=== PATIENT | male | born 1965 | race Two or more races ===

== ENCOUNTER 2020-07-12 10:48 | Outpatient (REF) | payer OTHER, SELFPAY ==
[2020-07-12 12:08] LABS: Anion Gap 13 (12-20); Blood Urea Nitrogen 19 mg/dL (9-16); Carbon Dioxide 31 mmol/L (22-29); Chloride 102 mmol/L (96-108); Estimated Glomerular Filt Rate 44; Glucose Random 100 mg/dL (60-115); Potassium 4.6 mmol/L (3.3-5.1); Sodium 141 mmol/L (135-145)
[2020-07-12 12:18] LABS: Creatinine Urine 212.81 mg/dL; Microalbum/Creatinine Ratio Ur 11.7 ug/mg cr
== END 2020-07-12 10:49 | disposition home or self-care (01) ==
LOC: HO.LAB 10:48
PROVIDERS: PCP Family Medicine; Visit Provider Family Medicine
DX: Z00.00 Encounter for general adult medical examination without abnormal findings (principal); I12.9 Hypertensive chronic kidney disease with stage 1 through stage 4 chronic kidney disease, or unspecified chronic kidney disease; N18.9 Chronic kidney disease, unspecified
CPT/HCPCS: 36415; 80048; 82043

== ENCOUNTER 2020-10-10 09:35 | Outpatient (REF) | payer OTHER, SELFPAY ==
[2020-10-10 10:36] LABS: MANUAL DIFF FLAG NO
[2020-10-10 11:01] LABS: Basophils Absolute Auto 0.1 X10*3/uL (0.0-0.2); Eosinophils Absolute Auto 0.1 X10*3/uL (0.0-0.4); Eosinophils Percent Auto 2.2 % (0-4); Hematocrit 45.9 % (42-52); Imm Gran Abs Auto 0.02 X10*3/uL (0.00-0.03); Imm Gran Pct Auto 0.4 % (0.0-0.4); Lymphocytes Absolute Auto 1.8 X10*3/uL (1.2-4.9); Lymphocytes Percent Auto 35.6 % (20-40); Mean Corpuscular HGB Conc 32.7 g/dl (31.0-36.0); Mean Corpuscular Hemoglobin 28.2 pg (27.0-33.0); Mean Corpuscular Volume 86.3 fL (80-98); Mean Platelet Volume 11.1 fL (9.4-12.4); Monocytes Absolute Auto 0.4 X10*3/uL (0.1-1.2); Monocytes Percent Auto 7.1 % (2-11); Neutrophils Absolute Auto 2.7 X10*3/uL (2.0-8.3); Neutrophils Percent Auto 53.7 % (45-73); Platelet Count 252 X10*3/uL (160-400); Red Blood Count 5.32 X10*6/uL (4.60-5.80); Red Cell Distribution Width 13.7 % (11.0-16.0); White Blood Count 5.1 X10*3/uL (4.8-10.8)
[2020-10-10 11:12] LABS: Alanine Aminotransferase 26 U/L (0-40); Albumin Level 4.4 g/dL (3.5-5.0); Alkaline Phosphatase 87 U/L (39-117); Anion Gap 11 (12-20); Aspartate Amino Transferase 29 U/L (5-37); Bilirubin Total 0.5 mg/dL (0.0-1.0); Blood Urea Nitrogen 17 mg/dL (9-16); Calcium 9.7 mg/dL (8.4-10.2); Carbon Dioxide 27 mmol/L (22-29); Chloride 109 mmol/L (96-108); Cholesterol 211 mg/dL; Estimated Glomerular Filt Rate 35; Glucose Fasting 103 mg/dL (60-99); HDL Cholesterol 43 mg/dL; LDL Cholesterol Calculated 147 mg/dl; Potassium 4.7 mmol/L (3.3-5.1); Sodium 142 mmol/L (135-145); Total Protein 7.8 g/dL (6.5-8.0); Triglycerides 105 mg/dL
[2020-10-10 11:22] LABS: TSH reflex Free T4 1.49 uIU/mL (0.32-4.0)
== END 2020-10-10 09:36 | disposition home or self-care (01) ==
LOC: HO.WFDLDS 09:35
PROVIDERS: Visit Provider Family Medicine
DX: Z00.00 Encounter for general adult medical examination without abnormal findings (principal)
CPT/HCPCS: 36415; 80053; 80061; 84443; 85025

== ENCOUNTER 2020-12-18 08:52 | Outpatient (REF) | payer OTHER, SELFPAY ==
[2020-12-18 11:30] LABS: Appearance Urine CLEAR; Color Urine YELLOW; Glucose Urine UA NEG (NEG); Leukocyte Esterase Urine NEG (NEG); Nitrite Urine NEG (NEG); Urine Blood NEG (NEG); Urine Ketones NEG (NEG); Urine Protein NEG (NEG-TRACE)
[2020-12-18 11:40] LABS: Anion Gap 13 (12-20); Blood Urea Nitrogen 17 mg/dL (9-16); Calcium 10.1 mg/dL (8.4-10.2); Carbon Dioxide 27 mmol/L (22-29); Chloride 107 mmol/L (96-108); Cholesterol 125 mg/dL; Estimated Glomerular Filt Rate 39; Glucose Random 100 mg/dL (60-115); HDL Cholesterol 36 mg/dL; LDL Cholesterol Calculated 73 mg/dl; Potassium 4.5 mmol/L (3.3-5.1); Sodium 142 mmol/L (135-145); Triglycerides 84 mg/dL
[2020-12-18 11:50] LABS: Alanine Aminotransferase 25 U/L (0-40); Albumin Level 4.6 g/dL (3.5-5.0); Alkaline Phosphatase 104 U/L (39-117); Aspartate Amino Transferase 23 U/L (5-37); Bilirubin Direct 0.3 mg/dL (0.0-0.5); Total Protein 8.1 g/dL (6.5-8.0); Uric Acid 6.6 mg/dL (3.4-7.0)
[2020-12-18 12:05] LABS: Prostate Specific Antigen Scr 1.52 ng/mL (<0.05-4.0)
[2020-12-18 12:09] LABS: Creatinine Urine 312.78 mg/dL; Protein/Creatinine Ratio, Ur 0.04 (<0.2); Total Protein Urine Random 14 mg/dL (<12)
== END 2020-12-18 08:53 | disposition home or self-care (01) ==
LOC: HO.WFDLDS 08:52
PROVIDERS: Internal Medicine Nephrology; PCP Family Medicine; Visit Provider Family Medicine
DX: Z00.00 Encounter for general adult medical examination without abnormal findings (principal); I13.0 Hypertensive heart and chronic kidney disease with heart failure and stage 1 through stage 4 chronic kidney disease, or unspecified chronic kidney disease; N18.31 Chronic kidney disease, stage 3a; I50.9 Heart failure, unspecified; E78.5 Hyperlipidemia, unspecified; Z12.5 Encounter for screening for malignant neoplasm of prostate
CPT/HCPCS: 36415; 80048; 80061; 80076; 81003; 84153; 84156; 84550

== ENCOUNTER 2021-04-09 10:12 | Outpatient (REF) | payer OTHER, SELFPAY ==
[2021-04-09 10:55] LABS: MANUAL DIFF FLAG NO
[2021-04-09 10:57] LABS: Basophils Percent Auto 0.7 % (0-2); Eosinophils Absolute Auto 0.1 X10*3/uL (0.0-0.4); Eosinophils Percent Auto 1.7 % (0-4); Hematocrit 45.8 % (42.0-52.0); Hemoglobin 15.1 g/dl (14.0-18.0); Imm Gran Abs Auto 0.01 X10*3/uL (0.00-0.03); Imm Gran Pct Auto 0.2 % (0.0-0.4); Lymphocytes Absolute Auto 1.8 X10*3/uL (1.2-4.9); Lymphocytes Percent Auto 33.1 % (20-40); Mean Corpuscular Hemoglobin 28.5 pg (27.0-33.0); Mean Corpuscular Volume 86.6 fL (80.0-98.0); Mean Platelet Volume 11.1 fL (9.4-12.4); Monocytes Absolute Auto 0.3 X10*3/uL (0.1-1.2); Monocytes Percent Auto 5.9 % (2-11); Neutrophils Absolute Auto 3.1 x10*3/uL (2.0-8.3); Neutrophils Percent Auto 58.4 % (45-73); Platelet Count 237 X10*3/uL (160-400); Red Blood Count 5.29 X10*6/uL (4.60-5.80); Red Cell Distribution Width 13.9 % (11.0-16.0); White Blood Count 5.4 X10*3/uL (4.8-10.8)
[2021-04-09 11:25] LABS: Alanine Aminotransferase 29 U/L (0-40); Albumin Level 4.3 g/dL (3.5-5.0); Alkaline Phosphatase 89 U/L (39-117); Anion Gap 9 (12-20); Aspartate Amino Transferase 25 U/L (5-37); Bilirubin Total 0.7 mg/dL (0.0-1.0); Blood Urea Nitrogen 12 mg/dL (9-16); Calcium 9.9 mg/dL (8.4-10.2); Carbon Dioxide 30 mmol/L (22-29); Chloride 108 mmol/L (96-108); Cholesterol 144 mg/dL; Estimated Glomerular Filt Rate 39; Glucose Fasting 105 mg/dL (60-99); HDL Cholesterol 39 mg/dL; LDL Cholesterol Calculated 86 mg/dl; Sodium 142 mmol/L (135-145); Total Protein 7.8 g/dL (6.5-8.0); Triglycerides 97 mg/dL
[2021-04-09 11:45] LABS: TSH reflex Free T4 1.98 uIU/mL (0.32-4.0)
[2021-04-09 13:41] LABS: Appearance Urine CLEAR; Color Urine YELLOW; Glucose Urine UA NEG (NEG); Leukocyte Esterase Urine NEG (NEG); Nitrite Urine NEG (NEG); Specific Gravity - Urine 1.025 (1.005-1.025); Urine Blood NEG (NEG); Urine Ketones NEG (NEG); Urine Protein TRACE MG/DL (NEG-TRACE)
== END 2021-04-09 10:13 | disposition home or self-care (01) ==
LOC: HO.WFDLDS 10:12
PROVIDERS: Visit Provider Family Medicine
DX: Z00.00 Encounter for general adult medical examination without abnormal findings (principal)
CPT/HCPCS: 36415; 80053; 80061; 81003; 84443; 85025

== ENCOUNTER 2021-06-24 09:56 | Outpatient (REF) | payer OTHER, SELFPAY ==
[2021-06-24 11:08] LABS: MANUAL DIFF FLAG NO
[2021-06-24 11:38] LABS: Basophils Percent Auto 0.5 % (0-2); Eosinophils Absolute Auto 0.2 X10*3/uL (0.0-0.4); Eosinophils Percent Auto 2.9 % (0-4); Hematocrit 45.1 % (42.0-52.0); Hemoglobin 14.7 g/dl (14.0-18.0); Imm Gran Abs Auto 0.01 X10*3/uL (0.00-0.03); Imm Gran Pct Auto 0.2 % (0.0-0.4); Lymphocytes Absolute Auto 1.7 X10*3/uL (1.2-4.9); Lymphocytes Percent Auto 30.1 % (20-40); Mean Corpuscular HGB Conc 32.6 g/dl (31.0-36.0); Mean Corpuscular Hemoglobin 28.4 pg (27.0-33.0); Mean Corpuscular Volume 87.1 fL (80.0-98.0); Mean Platelet Volume 11.6 fL (9.4-12.4); Monocytes Absolute Auto 0.4 X10*3/uL (0.1-1.2); Monocytes Percent Auto 6.7 % (2-11); Neutrophils Absolute Auto 3.3 x10*3/uL (2.0-8.3); Neutrophils Percent Auto 59.6 % (45-73); Platelet Count 242 X10*3/uL (160-400); Red Blood Count 5.18 X10*6/uL (4.60-5.80); Red Cell Distribution Width 13.7 % (11.0-16.0); White Blood Count 5.5 X10*3/uL (4.8-10.8)
[2021-06-24 12:22] LABS: Anion Gap 14 (12-20); Blood Urea Nitrogen 16 mg/dL (9-16); Calcium 9.9 mg/dL (8.4-10.2); Carbon Dioxide 25 mmol/L (22-29); Chloride 106 mmol/L (96-108); Estimated Glomerular Filt Rate 34; Phosphorus 2.6 mg/dL (2.7-4.5); Potassium 4.6 mmol/L (3.3-5.1); Sodium 140 mmol/L (135-145)
[2021-06-24 12:31] LABS: Appearance Urine CLEAR; Color Urine YELLOW; Glucose Urine UA NEG (NEG); Leukocyte Esterase Urine NEG (NEG); Nitrite Urine NEG (NEG); Specific Gravity - Urine 1.025 (1.005-1.025); Urine Blood NEG (NEG); Urine Ketones NEG (NEG); Urine Protein NEG (NEG-TRACE)
[2021-06-24 12:35] LABS: Vitamin D 25-OH Total 58.6 ng/mL (>30)
[2021-06-24 12:55] LABS: Renal w Reflex Lab Use Only Order verified
[2021-06-24 13:46] LABS: Total Protein Urine Random 16 mg/dL (<12)
[2021-06-25 12:51] LABS: Calcium (PTHI) 9.8 mg/dL (8.6-10.3); PTHI 71 pg/mL (16-77)
== END 2021-06-24 09:57 | disposition home or self-care (01) ==
LOC: HO.WFDLDS 09:56
PROVIDERS: Visit Provider Internal Medicine Nephrology
DX: I12.9 Hypertensive chronic kidney disease with stage 1 through stage 4 chronic kidney disease, or unspecified chronic kidney disease (principal); N18.31 Chronic kidney disease, stage 3a
CPT/HCPCS: 36415; 80051; 81003; 82306; 82310; 82565; 83970; 84100; 84156; 84520; 85025

== ENCOUNTER 2021-10-02 09:07 | Outpatient (REF) | payer OTHER, SELFPAY ==
[2021-10-02 11:14] LABS: Anion Gap 11 (12-20); Blood Urea Nitrogen 16 mg/dL (9-16); Calcium 9.6 mg/dL (8.4-10.2); Carbon Dioxide 28 mmol/L (22-29); Chloride 106 mmol/L (96-108); Estimated Glomerular Filt Rate 45; Potassium 5.2 mmol/L (3.3-5.1); Sodium 140 mmol/L (135-145)
[2021-10-02 11:30] LABS: Appearance Urine CLEAR; Color Urine YELLOW; Glucose Urine UA NEG (NEG); Leukocyte Esterase Urine NEG (NEG); Nitrite Urine NEG (NEG); Urine Blood NEG (NEG); Urine Ketones NEG (NEG); Urine Protein NEG (NEG-TRACE)
[2021-10-02 11:54] LABS: Creatinine Urine 245.61 mg/dL; Protein/Creatinine Ratio, Ur 0.04 (<0.2); Total Protein Urine Random 11 mg/dL (<12)
[2021-10-02 12:19] LABS: RBC Urine 0 /HPF (0); WBC Urine 0-2 /HPF (0-4)
[2021-10-02 12:46] LABS: Renal w Reflex Lab Use Only Order verified
== END 2021-10-02 09:08 | disposition home or self-care (01) ==
LOC: HO.WFDLDS 09:07
PROVIDERS: Visit Provider Internal Medicine Nephrology
DX: I12.9 Hypertensive chronic kidney disease with stage 1 through stage 4 chronic kidney disease, or unspecified chronic kidney disease (principal); N18.31 Chronic kidney disease, stage 3a
CPT/HCPCS: 36415; 80051; 81001; 82310; 82565; 84156; 84520

== ENCOUNTER 2021-10-26 09:22 | Outpatient (REF) | payer OTHER, SELFPAY ==
[2021-10-26 11:50] LABS: Alanine Aminotransferase 19 U/L (0-40); Albumin Level 4.5 g/dL (3.5-5.0); Alkaline Phosphatase 97 U/L (39-117); Anion Gap 14 (12-20); Aspartate Amino Transferase 23 U/L (5-37); Bilirubin Total 0.7 mg/dL (0.0-1.0); Blood Urea Nitrogen 14 mg/dL (9-16); Calcium 9.6 mg/dL (8.4-10.2); Carbon Dioxide 26 mmol/L (22-29); Chloride 106 mmol/L (96-108); Estimated Glomerular Filt Rate 46; Glucose Random 103 mg/dL (60-115); Potassium 5.2 mmol/L (3.3-5.1); Sodium 141 mmol/L (135-145); Total Protein 7.8 g/dL (6.5-8.0)
== END 2021-10-26 09:23 | disposition home or self-care (01) ==
LOC: HO.WFDLDS 09:22
PROVIDERS: Visit Provider Family Medicine
DX: N18.9 Chronic kidney disease, unspecified (principal)
CPT/HCPCS: 36415; 80053

== ENCOUNTER 2022-01-21 09:36 | Outpatient (REF) | payer OTHER, SELFPAY ==
[2022-01-21 11:20] LABS: Potassium 4.1 mmol/L (3.3-5.1); Sodium 141 mmol/L (135-145)
[2022-01-21 11:21] LABS: Anion Gap 14 (12-20); Blood Urea Nitrogen 16 mg/dL (9-16); Calcium 9.7 mg/dL (8.4-10.2); Carbon Dioxide 26 mmol/L (22-29); Chloride 105 mmol/L (96-108); Estimated Glomerular Filt Rate 44; Glucose Random 106 mg/dL (60-115)
== END 2022-01-21 09:37 | disposition home or self-care (01) ==
LOC: HO.WFDLDS 09:36
PROVIDERS: Visit Provider Family Medicine
DX: Z00.00 Encounter for general adult medical examination without abnormal findings (principal); N18.9 Chronic kidney disease, unspecified
CPT/HCPCS: 36415; 80048

== ENCOUNTER 2022-05-13 10:04 | Outpatient (REF) | payer OTHER, SELFPAY ==
[2022-05-13 11:19] LABS: MANUAL DIFF FLAG NO
[2022-05-13 11:26] LABS: Appearance Urine Clear; Color Urine Dark Yellow; Glucose Urine UA Negative (Negative); Leukocyte Esterase Urine Trace (Negative); Nitrite Urine Negative (Negative); PH 5.5 (5.0-9.0); UMIC TRIGGER UA YES; Urine Blood Negative (Negative); Urine Ketones Trace mg/dL (Negative); Urine Protein Trace mg/dL (Neg-Trace)
[2022-05-13 11:40] LABS: Basophils Percent Auto 0.7 % (0-2); Eosinophils Absolute Auto 0.1 X10*3/uL (0.0-0.4); Eosinophils Percent Auto 1.4 % (0-4); Hematocrit 46.1 % (42.0-52.0); Hemoglobin 15.2 g/dl (14.0-18.0); Imm Gran Abs Auto 0.02 X10*3/uL (0.00-0.03); Imm Gran Pct Auto 0.3 % (0.0-0.4); Lymphocytes Absolute Auto 1.8 X10*3/uL (1.2-4.9); Lymphocytes Percent Auto 31.4 % (20-40); Mean Corpuscular Hemoglobin 28.6 pg (27.0-33.0); Mean Corpuscular Volume 86.8 fL (80.0-98.0); Mean Platelet Volume 11.5 fL (9.4-12.4); Monocytes Absolute Auto 0.4 X10*3/uL (0.1-1.2); Monocytes Percent Auto 7.1 % (2-11); Neutrophils Absolute Auto 3.4 x10*3/uL (2.0-8.3); Neutrophils Percent Auto 59.1 % (45-73); Platelet Count 234 X10*3/uL (160-400); Red Blood Count 5.31 X10*6/uL (4.60-5.80); Red Cell Distribution Width 13.5 % (11.0-16.0); White Blood Count 5.8 X10*3/uL (4.8-10.8)
[2022-05-13 11:42] LABS: Bacteria Urine None Seen (None Seen); Hyaline Casts Urine 0-2 /LPF (0-2); Squamous Epithelial Cell Urine 0-2 /HPF (0-2); WBC Urine 0-5 /HPF (0-5)
[2022-05-13 12:11] LABS: Estimated Average Glucose 114 mg/dL; Hemoglobin A1c % 5.6 %
[2022-05-13 12:25] LABS: Alanine Aminotransferase 24 U/L (0-40); Albumin Level 4.3 g/dL (3.5-5.0); Alkaline Phosphatase 94 U/L (39-117); Anion Gap 11 (12-20); Aspartate Amino Transferase 23 U/L (5-37); Bilirubin Total 0.9 mg/dL (0.0-1.0); Blood Urea Nitrogen 15 mg/dL (9-16); Calcium 9.6 mg/dL (8.4-10.2); Carbon Dioxide 29 mmol/L (22-29); Chloride 106 mmol/L (96-108); Cholesterol 139 mg/dL; Estimated Glomerular Filt Rate 39; Glucose Random 102 mg/dL (60-115); HDL Cholesterol 37 mg/dL; LDL Cholesterol Calculated 81 mg/dl; Potassium 4.3 mmol/L (3.3-5.1); Sodium 142 mmol/L (135-145); Total Protein 7.5 g/dL (6.5-8.0); Triglycerides 108 mg/dL
[2022-05-14 22:28] LABS: Prolactin 5.7 ng/mL (2.0-18.0)
== END 2022-05-13 10:05 | disposition home or self-care (01) ==
LOC: HO.WFDLDS 10:04
PROVIDERS: Visit Provider Counselor Mental Health
DX: F40.10 Social phobia, unspecified (principal)
CPT/HCPCS: 36415; 80053; 80061; 81001; 83036; 84146; 84443; 85025

== ENCOUNTER 2022-07-30 08:08 | Outpatient (REF) | payer OTHER, SELFPAY ==
[2022-07-30 12:13] LABS: Anion Gap 11 (12-20); Blood Urea Nitrogen 17 mg/dL (9-16); Calcium 9.3 mg/dL (8.4-10.2); Carbon Dioxide 26 mmol/L (22-29); Chloride 110 mmol/L (96-108); Estimated Glomerular Filt Rate 38; Glucose Random 105 mg/dL (60-115); Potassium 4.3 mmol/L (3.3-5.1); Sodium 143 mmol/L (135-145)
[2022-07-30 12:24] LABS: Anion Gap 11 (12-20); Blood Urea Nitrogen 16 mg/dL (9-16); Calcium 9.4 mg/dL (8.4-10.2); Carbon Dioxide 26 mmol/L (22-29); Chloride 111 mmol/L (96-108); Estimated Glomerular Filt Rate 39; Potassium 4.2 mmol/L (3.3-5.1); Sodium 144 mmol/L (135-145)
[2022-07-30 12:44] LABS: Creatinine Urine 267.51 mg/dL; Protein/Creatinine Ratio, Ur 0.06 (<0.2); Total Protein Urine Random 15 mg/dL (<12)
== END 2022-07-30 08:09 | disposition home or self-care (01) ==
LOC: HO.WFDLDS 08:08
PROVIDERS: Family Medicine; Visit Provider Internal Medicine Nephrology
DX: Z00.00 Encounter for general adult medical examination without abnormal findings (principal); I12.9 Hypertensive chronic kidney disease with stage 1 through stage 4 chronic kidney disease, or unspecified chronic kidney disease; N18.31 Chronic kidney disease, stage 3a
CPT/HCPCS: 36415; 80048; 80051; 82310; 82565; 84156; 84520

== ENCOUNTER 2022-08-26 11:00 | Outpatient (REF) | payer OTHER, SELFPAY ==
[2022-08-26 14:22] LABS: Anion Gap 14 (12-20); Blood Urea Nitrogen 15 mg/dL (9-16); Calcium 9.6 mg/dL (8.4-10.2); Carbon Dioxide 26 mmol/L (22-29); Chloride 108 mmol/L (96-108); Estimated Glomerular Filt Rate 40; Glucose Random 115 mg/dL (60-115); Potassium 4.4 mmol/L (3.3-5.1); Sodium 144 mmol/L (135-145)
== END 2022-08-26 11:01 | disposition home or self-care (01) ==
LOC: HO.WFDLDS 11:00
PROVIDERS: Visit Provider Family Medicine
DX: Z00.00 Encounter for general adult medical examination without abnormal findings (principal); N18.9 Chronic kidney disease, unspecified
CPT/HCPCS: 36415; 80048

== ENCOUNTER 2022-11-24 10:19 | Outpatient (REF) | payer OTHER, SELFPAY ==
[2022-11-24 12:32] LABS: Anion Gap 11 (12-20); Blood Urea Nitrogen 20 mg/dL (9-16); Calcium 9.7 mg/dL (8.4-10.2); Carbon Dioxide 26 mmol/L (22-29); Chloride 108 mmol/L (96-108); Estimated Glomerular Filt Rate 40; Glucose Random 92 mg/dL (60-115); Potassium 4.5 mmol/L (3.3-5.1); Sodium 140 mmol/L (135-145)
== END 2022-11-24 10:20 | disposition home or self-care (01) ==
LOC: HO.WFDLDS 10:19
PROVIDERS: Visit Provider Family Medicine
DX: Z00.00 Encounter for general adult medical examination without abnormal findings (principal); N18.9 Chronic kidney disease, unspecified
CPT/HCPCS: 36415; 80048

== ENCOUNTER 2022-11-30 10:25 | Outpatient (AMB) | payer OTHER, SELFPAY ==
[2022-11-30 10:27] VITALS: BP 128/74; PULSE 50; O2SAT 97; BMI 32.8
--- NOTE | 2022-11-30 10:27 | MHC.PC.OV ---
Vital Signs 11/30/22 10:27 Height 6 ft 1 in Weight 248 lb 8 oz BMI 32.8 BP 128/74 Blood Pressure Location Lt brachial Position Sitting Pulse 50 Pulse Source Pulse Oximeter Pulse Oximetry (%) 97 Oxygen Delivery Method Room Air Intake Visit Reasons: follow up htn, crf Intake Note: Patient is here to follow up on HTN, and CRF. Allergies Seasonal Allergies Allergy (Mild, Verified 11/30/22 10:29) Sneezing Medication List - Last Reconciled 11/30/22 by Parviz Aguero MD allopurinol 200 mg (2 x 100 mg) PO DAILY amlodipine 10 mg PO DAILY 90 days aripiprazole 5 mg PO DAILY atorvastatin 20 mg PO BEDTIME azelastine 1 spray intranasal BID cetirizine 10 mg PO DAILY chlorhexidine gluconate 0.12% (Peridex) 15 mL buccal BID 30 days cyclobenzaprine 10 mg PO TID PRN diclofenac sodium 1% 2 grams topical QID 30 days fluocinonide 0.05% appl topical DAILY PRN fluticasone propionate 50 mcg/actuation 1 spray intranasal DAILY meclizine 25 mg PO BID PRN melatonin mg PO BEDTIME metoprolol succinate ER 150 mg (1.5 x 100 mg) PO DAILY 90 days penicillin V potassium 500 mg PO TID 10 days quetiapine ER 600 mg PO BEDTIME vilazodone 40 mg PO QAM Tobacco use date assessed: 11/30/22 Dental Screening Dental Screen Date: 11/30/22 Did you have a dental visit in the last 12 months?: Yes Did you have a dental problem in the last 6 months where you did not have access to dental care?: No Was dental information given to patient?: Patient has dentist HPI follow up htn, crf HPI Details 57 y/o male presents to f/u hypertension and CRF. Renal failure had seemed improved after discontinuing hydrochlorothiazide and his BP was controlled last office visit. Blood pressure today is 128/74. He is on metoprolol 150mg and amlodipine 10mg daily. PFSH Family History Other Mental health disorder Social History Housing: Apartment Alcohol intake: current Patient Tobacco Use Status: Never used Tobacco e-Cigarette/Vaping Use: Never Used Second Hand Smoke Exposure: No service: No Current occupational status: disabled Current occupational exposures/hazards: No Cognitive needs: No Hearing needs: No Vision needs: No Questionnaire PHQ-9 Over the last 2 weeks, how often have you been bothered by any of the following problems? 1. Little interest or pleasure in doing things: not at all 2. Feeling down, depressed, or hopeless: not at all 3. Trouble falling or staying asleep, or sleeping too much: not at all 4. Feeling tired or having little energy: not at all 5. Poor appetite or overeating: not at all 6. Feeling bad about yourself - or that you are a failure or have let yourself or your family down: not at all 7. Trouble concentrating on things, such as reading the newspaper or watching television: several days 8. Moving or speaking so slowly that other people could have noticed. Or the opposite - being so fidgety or restless that you have been moving around a lot more than usual: several days 9. Thoughts that you would be better off or of hurting yourself in some way: not at all Total score: 2 Source: Developed by Drs. Rafal Conway, Gabby Roberts, Gerry Vogt and colleagues, with an educational isabelle from [employer]. Thrive Questionnaire Date Thrive assessed: 04/21/22 I am a: Patient What is your living situation today?: I have a steady place to live Within the past 12 months, did the food you bought not last and you didn't have the money to get more?: Never true Within the past 12 months, did you worry whether your food would run out before you got money to buy more?: Never true Do you have trouble paying for medicines?: No Do you have trouble getting transportation to medical appointments?: No Do you have trouble paying your heating and electricity bill?: No Do you have trouble taking care of your child, family member or friend?: No Do you have trouble with day-to-day activities such as bathing, preparing meals, shopping, managing finances, etc.?: No Are you currently unemployed and looking for a job?: No Are you interested in more education?: No AUDIT C Alcohol Use Questionnaire (AUDIT-C) 1. How often do you have a drink containing alcohol?: Monthly or less 2. How many drinks containing alcohol do you have on a typical day when you are drinking?: 3 or 4 3. How often do you have six or more drinks on one occasion?: Never Total Score: 2 DIANE-7 AMB Questionnaire DIANE-7 Date DIANE - 7 assessed: 01/27/22 Feeling nervous, anxious, or on edge: 1 = Several days Not being able to stop or control worryin = Several days Worrying too much about different things: 0 = Not at all Trouble relaxin = Not at all Being so restless that it is hard to sit still: 0 = Not at all Becoming easily annoyed or irritable: 0 = Not at all Feeling afraid as if something awful might happen: 0 = Not at all Total DIANE-7 score (0-4 normal; 5-9 mild; 10-14 moderate; 15-21 severe): 2 Source: Developed by Drs. Rafal Conway, Gabby Roberts, Gerry Vogt and colleagues, with an educational isabelle from [employer]. Review of Systems Const Denies chills, Denies fatigue, Denies fever(s), Denies headache(s) and Denies weakness ENT Denies dizziness and Denies headache(s) Card Denies chest pain, Denies lightheadedness, Denies dyspnea and Denies other (Palpitations) Resp Denies cough, Denies dyspnea, Denies wheezing and Denies other ( shortness of breath) Musc Denies numbness and Denies tingling Neuro Denies dizziness, Denies headache(s), Denies numbness, Denies tingling, Denies paresthesias and Denies weakness Psych Denies anxiety and Denies depression Endo Denies fatigue Aller/Immun Denies wheezing Physical exam (Primary Care) Vital Signs: Last Vital Signs Pulse 50 11/30/22 10:27 BP 128/74 11/30/22 10:27 Pulse Ox 97 11/30/22 10:27 Oxygen Delivery Method Room Air 11/30/22 10:27 BMI result Body Mass Index 32.8 Tobacco/Smoking Status: Tobacco use Status Tobacco use date assessed 11/30/22 11/30/22 10:31 Patient Tobacco Use Status Never used Tobacco 11/30/22 10:31 e-Cigarette/Vaping Use Never Used 11/30/22 10:31 PHQ-9: PHQ-9 Score PHQ-9: Total score 2 11/30/22 10:43 Thrive Assessment: Date of Thrive Assessment Date Thrive assessed 04/21/22 11/30/22 10:31 Const General: no acute distress and well developed Nutritional Appearance: well nourished Orientation/consciousness: patient oriented x3 HENMT Head: Yes normocephalic and Yes atraumatic Eyes General: appearance normal, both eyes and all related structures Pupils: Equal, round and reactive pupils present EOM: EOMs intact bilaterally Resp Effort & Inspection: normal respiratory effort Auscultation: clear to auscultation bilaterally Cardio Rate: regular rate Rhythm: regular rhythm Heart sounds: S1 normal heart sound present, S2 normal heart sound present, no gallops, no murmurs and no rubs Neuro General: patient oriented x3 and gait normal Cranial nerves: Yes Equal, round and reactive pupils present Psych Affect: normal affect Assessment and Plan Assessment & Plan (1) Essential hypertension: Code(s): I10 - Essential (primary) hypertension Plan: Blood pressure is controlled. Goal is less than 140/90 Continue current medication regimen (2) Chronic renal failure: Code(s): N18.9 - Chronic kidney disease, unspecified Plan: Renal function remains at baseline Follow-up with nephrology as recommended Orders: Orders Comprehensive [place]. Panel Fast Today Z00.00 - Encounter for general adult medical examination without abnormal findings Lipid Panel Today Z00.00 - Encounter for general adult medical examination without abnormal findings Prostate Specific Antigen Scr Today Z12.5 - Encounter for screening for malignant neoplasm of prostate TSH reflex Free T4 Today Z00.00 - Encounter for general adult medical examination without abnormal findings Microalbumin, Random (w Creat) Today I10 - Essential (primary) hypertension Complete Blood Count Auto Diff Today Z00.00 - Encounter for general adult medical examination without abnormal findings UA and rflx microscopic Today Z00.00 - Encounter for general adult medical examination without abnormal findings Coding Level of Care Code Est Pt Level 3 (62880) Diagnoses Essential hypertension I10 Chronic renal failure N18.9
== END 2022-11-30 10:48 | disposition home or self-care (01) ==
PROVIDERS: PCP Family Medicine; Visit Provider Family Medicine
DX: I12.9 Hypertensive chronic kidney disease with stage 1 through stage 4 chronic kidney disease, or unspecified chronic kidney disease (principal); N18.9 Chronic kidney disease, unspecified
CPT/HCPCS: 99213

== ENCOUNTER 2023-02-15 09:35 | Outpatient (REF) | payer OTHER, SELFPAY ==
[2023-02-15 11:17] LABS: MANUAL DIFF FLAG NO
[2023-02-15 11:35] LABS: Basophils Absolute Auto 0.1 X10*3/uL (0.0-0.2); Eosinophils Absolute Auto 0.1 X10*3/uL (0.0-0.4); Eosinophils Percent Auto 1.7 % (0-4); Hematocrit 44.9 % (42.0-52.0); Hemoglobin 14.8 g/dl (14.0-18.0); Imm Gran Abs Auto 0.01 X10*3/uL (0.00-0.03); Imm Gran Pct Auto 0.2 % (0.0-0.4); Lymphocytes Absolute Auto 1.6 X10*3/uL (1.2-4.9); Lymphocytes Percent Auto 30.2 % (20-40); Mean Corpuscular Hemoglobin 28.6 pg (27.0-33.0); Mean Corpuscular Volume 86.7 fL (80.0-98.0); Monocytes Absolute Auto 0.4 X10*3/uL (0.1-1.2); Monocytes Percent Auto 6.9 % (2-11); Neutrophils Absolute Auto 3.2 x10*3/uL (2.0-8.3); Platelet Count 221 X10*3/uL (160-400); Red Blood Count 5.18 X10*6/uL (4.60-5.80); Red Cell Distribution Width 13.6 % (11.0-16.0); White Blood Count 5.2 X10*3/uL (4.8-10.8)
[2023-02-15 12:08] LABS: Prostate Specific Antigen Scr 1.73 ng/mL (<0.05-4.0)
[2023-02-15 12:11] LABS: Alanine Aminotransferase 23 U/L (0-40); Albumin Level 4.2 g/dL (3.5-5.0); Alkaline Phosphatase 80 U/L (39-117); Anion Gap 11 (12-20); Aspartate Amino Transferase 27 U/L (5-37); Bilirubin Total 0.8 mg/dL (0.0-1.0); Blood Urea Nitrogen 19 mg/dL (9-16); Calcium 9.7 mg/dL (8.4-10.2); Carbon Dioxide 25 mmol/L (22-29); Chloride 111 mmol/L (96-108); Cholesterol 114 mg/dL (<200); Estimated Glomerular Filt Rate 45; Glucose Fasting 97 mg/dL (60-99); HDL Cholesterol 38 mg/dL (>40); LDL Cholesterol Calculated 65 mg/dL (<100); Potassium 4.3 mmol/L (3.3-5.1); Sodium 143 mmol/L (135-145); Total Protein 7.7 g/dL (6.5-8.0); Triglycerides 57 mg/dL (<150)
[2023-02-15 12:12] LABS: TSH reflex Free T4 2.17 uIU/mL (0.32-4.0)
== END 2023-02-15 09:36 | disposition home or self-care (01) ==
LOC: HO.WFDLDS 09:35
PROVIDERS: Visit Provider Family Medicine
DX: Z00.00 Encounter for general adult medical examination without abnormal findings (principal); Z20.2 Contact with and (suspected) exposure to infections with a predominantly sexual mode of transmission; Z12.5 Encounter for screening for malignant neoplasm of prostate
CPT/HCPCS: 36415; 80053; 80061; 84153; 84443; 85025

== ENCOUNTER 2023-05-10 13:47 | Outpatient (AMB) | payer OTHER, SELFPAY ==
[2023-05-10 13:52] VITALS: BP 123/73; PULSE 44; O2SAT 98; BMI 32.1
--- NOTE | 2023-05-10 13:52 | A.OFFPC_ITS ---
Vital Signs 05/10/23 13:52 Height 6 ft 1 in Weight 243 lb 8 oz BMI 32.1 BP 123/73 Blood Pressure Location Lt brachial Position Sitting Pulse 44 L Pulse Source Pulse Oximeter Pulse Oximetry (%) 98 Oxygen Delivery Method Room Air Intake Visit Reasons: CPE with f/u labs and health maintenance Intake Note: Patient is here for his physical today. Allergies Seasonal Allergies Allergy (Mild, Verified 05/10/23 13:54) Sneezing Tobacco use date assessed: 05/10/23 HPI CPE with f/u labs and health maintenance HPI Details 58 y/o male presents for a CPE with f/u labs and health maintenance. Labs were drawn 02/15/23. Reviewed labs with pt. Creatinine level improved from 1.79 to 1.59. Triglycerides 57. TC 114. LDL 65. HDL low at 38. He is on artovastatin 20mg. Blood pressure today 123/73, 44p. He is on metoprolol 150mg , amlodipine 10mg. Pt reports cologuard 2022 which was negative. PFSH Family History Other Mental health disorder Social History Housing: Apartment Alcohol intake: current Patient Tobacco Use Status: Never used Tobacco e-Cigarette/Vaping Use: Never Used Second Hand Smoke Exposure: No service: No Current occupational status: disabled Current occupational exposures/hazards: No Cognitive needs: No Hearing needs: No Vision needs: No Questionnaire Thrive Questionnaire Date Thrive assessed: 04/21/22 DIANE-7 AMB Questionnaire DIANE-7 Date DIANE - 7 assessed: 01/27/22 Source: Developed by Drs. Rafal Conway, Gabby Roberts, Gerry Vogt and colleagues, with an educational isabelle from [employer]. Review of Systems Const Denies chills, Denies fatigue, Denies fever(s), Denies headache(s) and Denies weakness Eyes Denies change in vision ENT Denies dizziness, Denies headache(s), Denies hearing loss, Denies nasal congestion, Denies sinus pain, Denies sinus pressure and Denies sore throat Card Denies chest pain, Denies lightheadedness, Denies dyspnea and Denies other (palpitations) Resp Denies cough, Denies dyspnea and Denies wheezing GI Denies abdominal pain, Denies melena, Denies hematochezia, Denies change in bowel habits, Denies dyspepsia and Denies nausea Denies hematuria and Denies dysuria Musc Denies abnormal gait, Denies myalgias, Denies arthralgias, Denies numbness and Denies tingling Skin/Breast Denies rash, Denies unusual bruising and Denies wounds Neuro Denies abnormal gait, Denies dizziness, Denies headache(s), Denies memory loss, Denies numbness, Denies Sensory deficit (Neuro), Denies tingling and Denies weakness Psych Denies anxiety, Denies depression and Denies memory loss Endo Denies cold intolerance, Denies fatigue, Denies heat intolerance, Denies polydipsia and Denies polyuria Abilio/Lymph Denies easy bleeding and Denies easy bruising Aller/Immun Denies wheezing Physical exam (Primary Care) Vital Signs: Last Vital Signs Pulse 44 L 05/10/23 13:52 BP 123/73 05/10/23 13:52 Pulse Ox 98 05/10/23 13:52 Oxygen Delivery Method Room Air 05/10/23 13:52 BMI result Body Mass Index 32.1 Tobacco/Smoking Status: Tobacco use Status Tobacco use date assessed 05/10/23 05/10/23 13:55 Patient Tobacco Use Status Never used Tobacco 05/10/23 13:55 e-Cigarette/Vaping Use Never Used 05/10/23 13:55 Thrive Assessment: Date of Thrive Assessment Date Thrive assessed 04/21/22 05/10/23 13:55 Const General: no acute distress, well developed, alert and awake Nutritional Appearance: well nourished Orientation/consciousness: patient oriented x3 HENMT Head: Yes normocephalic and Yes atraumatic Ears: hearing grossly normal bilaterally and TM's normal bilaterally General nose exam: Normal external nose present and Normal nares present Mouth: Normal oral and palatal mucosa present and moist mucous membranes Teeth and gingiva: dentition normal Throat: Yes posterior oropharynx normal Eyes General: appearance normal, both eyes and all related structures Pupils: Equal, round and reactive pupils present and Pupil accommodation reflex normal EOM: EOMs intact bilaterally Neck Neck: Yes normal visual inspection, Yes no lymphadenopathy and Yes trachea midline Thyroid: Thyroid normal Carotids: no bruits Lymphatic: no lymphadenopathy noted Chest Chest palpation & inspection: normal inspection of the chest Resp Effort & Inspection: normal respiratory effort Auscultation: clear to auscultation bilaterally Cardio Rate: regular rate Rhythm: regular rhythm Heart sounds: S1 normal heart sound present, S2 normal heart sound present, no gallops, no murmurs and no rubs Bruits: no abdominal aortic bruits and no carotid bruits GI Palpation (GI): No Abdominal aortic bruit present, Soft to palpation, nontender, No hepatosplenomegaly present and No Rebound tenderness present Auscultation: normal bowel sounds General: Yes no CVA tenderness Back/Spine/Pelvis Back: no CVA tenderness Cervical Spine: cervical ROM normal and No Cervical spine tenderness Thoracic/Lumbar Spine: thoraco-lumbar ROM normal, No pain with thoraco-lumbar ROM, No thoracic spinal tenderness and No lumbar spinal tenderness Skin Lesions: no lesions Rashes: no rashes Trauma: no lacerations or abrasions Wounds: no wounds Nails: normal Neuro General: patient oriented x3 Cranial nerves: Yes Equal, round and reactive pupils present Cognition (Neuro): normal cognition Gait exam (Neuro): Normal gait present Motor exam (neuro): 5/5 motor strength present throughout Sensory Exam: No Sensory deficit (Neuro) Deep tendon reflexes (DTR's): Right patellar reflex intensity grade: 2+ and Left patellar reflex intensity grade: 2+ Extrem General: Yes normal to inspection and No edema Psych Appearance: grossly normal Affect: normal affect Attitude: cooperative Thought process: Normal thought process present Assessment and Plan Assessment & Plan (1) Adult general medical exam: Code(s): Z00.00 - Encounter for general adult medical examination without abnormal findings Plan: 58-year-old?male?presents?for?complete?physical?exam Encouraged?healthy?diet?with?active?lifestyle?and?plenty?of?exercise (2) Chronic renal failure: Code(s): N18.9 - Chronic kidney disease, unspecified Plan: Creatinine?level?has?decreased?some?and?is?rather?stable. Followed?by?Nephrology?and?says?he?has?an?appointment?later?in?the?year He?will?follow-up?with?nephrology?and?they?were?cons idering?adding?a?small?amount?of?LONA?inhibitor Will?follow?along (3) Essential hypertension: Code(s): I10 - Essential (primary) hypertension Plan: Blood?pressure?is?well?controlled.??Goal?is?less?than?140/90 Continue?current?medication (4) Low HDL (under 40): Code(s): E78.6 - Lipoprotein deficiency Plan: Mildly?low?HDL?but?his?LDL?is?well?controlled. Continue?atorvastatin?and?encouraged?exercise (5) Screening for colon cancer: Code(s): Z12.11 - Encounter for screening for malignant neoplasm of colon Plan: FOBT negative?in?February?2022 Will?continue?screening?and?I?recommended?a?Cologuard?test?at?next?screening?deisy e (6) Screening for prostate cancer: Code(s): Z12.5 - Encounter for screening for malignant neoplasm of prostate Plan: PSA WNL Will?continue?annual?screening Coding Level of Care Code Est Pt Level 3 (95808) Est Pt Prev Care 40-64y(36661) Diagnoses Adult general medical exam Z00.00 Chronic renal failure N18.9 Essential hypertension I10 Low HDL (under 40) E78.6 Screening for colon cancer Z12.11 Screening for prostate cancer Z12.5
== END 2023-05-10 14:22 | disposition home or self-care (01) ==
PROVIDERS: PCP Family Medicine; Visit Provider Family Medicine
DX: Z00.00 Encounter for general adult medical examination without abnormal findings (principal); I12.9 Hypertensive chronic kidney disease with stage 1 through stage 4 chronic kidney disease, or unspecified chronic kidney disease; N18.9 Chronic kidney disease, unspecified; E78.6 Lipoprotein deficiency; Z12.11 Encounter for screening for malignant neoplasm of colon; Z12.5 Encounter for screening for malignant neoplasm of prostate
CPT/HCPCS: 99396

== ENCOUNTER 2023-07-20 09:14 | Outpatient (REF) | payer OTHER, SELFPAY ==
[2023-07-20 12:15] LABS: Anion Gap 10 (12-20); Blood Urea Nitrogen 19 mg/dL (9-16); Calcium 9.4 mg/dL (8.4-10.2); Carbon Dioxide 27 mmol/L (22-29); Chloride 108 mmol/L (96-108); Estimated Glomerular Filt Rate 41; Potassium 4.1 mmol/L (3.3-5.1); Sodium 141 mmol/L (135-145)
[2023-07-20 12:33] LABS: Creatinine Urine 238.97 mg/dL; Protein/Creatinine Ratio, Ur 0.04 (<0.2); Total Protein Urine Random 10 mg/dL (<12)
== END 2023-07-20 09:15 | disposition home or self-care (01) ==
LOC: HO.WFDLDS 09:14
PROVIDERS: Visit Provider Internal Medicine Nephrology
DX: I10 Essential (primary) hypertension (principal)
CPT/HCPCS: 36415; 80051; 82310; 82565; 82570; 84156; 84520

== ENCOUNTER 2023-07-26 10:30 | Outpatient (AMB) | payer OTHER, SELFPAY ==
[2023-07-26 11:05] VITALS: BP 130/80; PULSE 46; O2SAT 97; BMI 31.5
--- NOTE | 2023-07-26 11:05 | HO.NEPHOV ---
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 He denies using any creatinine. He does not have any chest pain, shortness of breath, paroxysmal nocturnal dyspnea, orthopnea, pedal edema or urinary symptoms. His blood pressure has been at goal. He does not take any excessive nonsteroidal anti-inflammatories. He has no new systemic complaints. His serum creatinine has been stable. PFSH Family History Other Mental health disorder Social History Housing: Apartment Alcohol intake: current Patient Tobacco Use Status: Never used Tobacco e-Cigarette/Vaping Use: Never Used Second Hand Smoke Exposure: No service: No Current occupational status: disabled Current occupational exposures/hazards: No Cognitive needs: No Hearing needs: No Vision needs: No Physical Exam Vital Signs: Last Vital Signs Pulse 46 L 07/26/23 11:05 BP 130/80 07/26/23 11:05 Pulse Ox 97 07/26/23 11:05 Oxygen Delivery Method Room Air 07/26/23 11:05 BMI result Body Mass Index 31.5 Const General: comfortable and no acute distress Orientation/consciousness: patient oriented x3 HEENT Head: Yes normocephalic Mouth: Normal oral and palatal mucosa present Eyes EOM: EOMs intact bilaterally Neck Neck: Yes supple Resp Auscultation: clear to auscultation bilaterally Cardio Jugular venous distension: no JVD Rate: regular rate GI Palpation (GI): Soft to palpation Auscultation: normal bowel sounds General: Yes no CVA tenderness Back/Spine/Pelvis Back: no CVA tenderness Skin General skin exam: no rashes or lesions noted Neuro General: patient oriented x3 and moves all extremities Extrem General: Yes no pedal edema Results Reviewed Nephrology Results: Hgb 14.8 g/dl (14.0-18.0) 02/15/23 WBC 5.2 X10*3/uL (4.8-10.8) 02/15/23 Plt Count 221 X10*3/uL (160-400) 02/15/23 Sodium 141 mmol/L (135-145) 07/20/23 Potassium 4.1 mmol/L (3.3-5.1) 07/20/23 Chloride 108 mmol/L (96-108) 07/20/23 Carbon Dioxide 27 mmol/L (22-29) 07/20/23 BUN 19 mg/dL (9-16) H 07/20/23 Creatinine 1.72 mg/dL (0.5-1.4) H 07/20/23 Calcium 9.4 mg/dL (8.4-10.2) 07/20/23 Urine Creatinine 238.97 mg/dL 07/20/23 Protein/Creatinin Ratio 0.04 (<0.2) 07/20/23 Assessment & Plan Assessment & Plan (1) Essential hypertension: Code(s): I10 - Essential (primary) hypertension Category: Medical (2) CKD stage 3a, GFR 45-59 ml/min: Code(s): N18.31 - Chronic kidney disease, stage 3a Category: Medical Plan Eben has CKD stage 3 and hypertension. His renal functions have been stable. His creatinine clearance by last 24 hour urine collection was 68 mls per minute. He does not take any creatinine supplements now. He has no proteinuria. Extensive workup done but short of renal biopsy did not reveal any etiology. His blood pressure is at goal. It is likely that he has suffered a renal insult in the past which has dropped his GFR. If his serum creatinine rises I will consider doing a renal biopsy. I ordered a 24 hour urine collection for creatinine clearance along with follow-up CKD blood work. He maintains good hydration. He avoids nonsteroidal anti-inflammatories. I did not make any medication changes at this visit. Answered all questions. Follow-up appointment given. Orders: Orders Creatinine Clearance Urine 24U 07/26/23 I10 - Essential (primary) hypertension, N18.31 - Chronic kidney disease, stage 3a Blood Urea Nitrogen 07/26/23 I10 - Essential (primary) hypertension, N18.31 - Chronic kidney disease, stage 3a Electrolytes 07/26/23 I10 - Essential (primary) hypertension, N18.31 - Chronic kidney disease, stage 3a Calcium 07/26/23 I10 - Essential (primary) hypertension, N18.31 - Chronic kidney disease, stage 3a Complete Blood Count Auto Diff 07/26/23 I10 - Essential (primary) hypertension, N18.31 - Chronic kidney disease, stage 3a Creatinine 07/26/23 I10 - Essential (primary) hypertension, N18.31 - Chronic kidney disease, stage 3a Parathyroid Hormone Intact 07/26/23 I10 - Essential (primary) hypertension, N18.31 - Chronic kidney disease, stage 3a Coding Level of Care Code Est Pt Level 4 (42388) Diagnoses Essential hypertension I10 CKD stage 3a, GFR 45-59 ml/min N18.31
== END 2023-07-26 11:32 | disposition home or self-care (01) ==
PROVIDERS: PCP Family Medicine; Visit Provider Internal Medicine Nephrology
DX: I10 Essential (primary) hypertension (principal); N18.31 Chronic kidney disease, stage 3a
CPT/HCPCS: 99214

== ENCOUNTER → 2023-07-26 10:30 | Outpatient (BNVA) | payer OTHER, SELFPAY | PROVIDERS: PCP Family Medicine; Visit Provider Internal Medicine Nephrology | DX: I12.9 Hypertensive chronic kidney disease with stage 1 through stage 4 chronic kidney disease, or unspecified chronic kidney disease (principal); N18.31 Chronic kidney disease, stage 3a | CPT/HCPCS: 99212 ==

== ENCOUNTER 2023-09-27 09:21 | Outpatient (REF) | payer OTHER, SELFPAY ==
[2023-09-27 11:29] LABS: MANUAL DIFF FLAG NO
[2023-09-27 11:39] LABS: Appearance Urine Clear; Color Urine Yellow; Glucose Urine UA Negative (Negative); Leukocyte Esterase Urine Trace (Negative); Nitrite Urine Negative (Negative); PH 5.5 (5.0-9.0); UMIC TRIGGER UA YES; Urine Blood Negative (Negative); Urine Ketones Trace mg/dL (Negative); Urine Protein Trace mg/dL (Neg-Trace)
[2023-09-27 11:48] LABS: Bacteria Urine None Seen (None Seen); Hyaline Casts Urine 0-2 /LPF (0-2); RBC Urine 0-2 /HPF (0-2); Squamous Epithelial Cell Urine 0-2 /HPF (0-2); WBC Urine 0-5 /HPF (0-5)
[2023-09-27 12:02] LABS: Basophils Percent Auto 0.7 % (0-2); Eosinophils Absolute Auto 0.2 X10*3/uL (0.0-0.4); Eosinophils Percent Auto 3.4 % (0-4); Hematocrit 45.7 % (42.0-52.0); Hemoglobin 15.2 g/dl (14.0-18.0); Imm Gran Abs Auto 0.01 X10*3/uL (0.00-0.03); Imm Gran Pct Auto 0.2 % (0.0-0.4); Lymphocytes Absolute Auto 1.4 X10*3/uL (1.2-4.9); Lymphocytes Percent Auto 32.1 % (20-40); Mean Corpuscular HGB Conc 33.3 g/dl (31.0-36.0); Mean Corpuscular Hemoglobin 28.9 pg (27.0-33.0); Mean Corpuscular Volume 86.9 fL (80.0-98.0); Mean Platelet Volume 11.5 fL (9.4-12.4); Monocytes Absolute Auto 0.4 X10*3/uL (0.1-1.2); Monocytes Percent Auto 8.1 % (2-11); Neutrophils Absolute Auto 2.5 x10*3/uL (2.0-8.3); Neutrophils Percent Auto 55.5 % (45-73); Platelet Count 216 X10*3/uL (160-400); Red Blood Count 5.26 X10*6/uL (4.60-5.80); Red Cell Distribution Width 13.2 % (11.0-16.0); White Blood Count 4.4 X10*3/uL (4.8-10.8)
[2023-09-27 12:21] LABS: Anion Gap 12 (12-20); Blood Urea Nitrogen 18 mg/dL (9-16); Calcium 9.9 mg/dL (8.4-10.2); Carbon Dioxide 26 mmol/L (22-29); Chloride 107 mmol/L (96-108); Estimated Glomerular Filt Rate 42; Potassium 3.9 mmol/L (3.3-5.1); Sodium 141 mmol/L (135-145)
[2023-09-27 12:38] LABS: Parathyroid Hormone Intact 117.7 pg/mL (8.7-77.1)
[2023-09-27 12:46] LABS: Microalbum/Creatinine Ratio Ur 6.1 ug/mg cr (<30)
== END 2023-09-27 09:22 | disposition home or self-care (01) ==
LOC: HO.WFDLDS 09:21
PROVIDERS: Internal Medicine Nephrology; Visit Provider Family Medicine
DX: I10 Essential (primary) hypertension (principal); N18.31 Chronic kidney disease, stage 3a
CPT/HCPCS: 36415; 80051; 81001; 82043; 82310; 82565; 82570; 83970; 84520; 85025

== ENCOUNTER 2023-10-06 10:38 | Outpatient (AMB) | payer OTHER, SELFPAY ==
[2023-10-06 11:10] VITALS: BP 132/80; PULSE 42; O2SAT 99; BMI 31.4
--- NOTE | 2023-10-06 11:10 | A.OFFPC_ITS ---
Vital Signs 10/06/23 11:10 Height 6 ft 1 in Weight 238 lb 2 oz BMI 31.4 BP 132/80 Blood Pressure Location Lt brachial Position Sitting Pulse 42 L Pulse Source Pulse Oximeter Pulse Oximetry (%) 99 Oxygen Delivery Method Room Air Intake Visit Reasons: f/u hypertension, chronic conditions Intake Note: Patient is following up on hypertension and chronic conditions. Patient is concerned ab out his pulse, just want an explanation that everything is ok. Allergies Seasonal Allergies Allergy (Mild, Verified 10/06/23 11:12) Sneezing Medication List - Last Reconciled 10/06/23 by Parviz Aguero MD allopurinol 200 mg (2 x 100 mg) PO DAILY amlodipine 10 mg PO DAILY 90 days aripiprazole 5 mg PO DAILY atorvastatin 20 mg PO BEDTIME azelastine 1 spray intranasal BID cetirizine 10 mg PO DAILY cyclobenzaprine 10 mg PO TID PRN diclofenac sodium 1% 2 grams topical QID 30 days fluocinonide 0.05% appl topical DAILY PRN fluticasone propionate 50 mcg/actuation 1 spray intranasal DAILY meclizine 25 mg PO BID PRN melatonin mg PO BEDTIME metoprolol succinate ER 150 mg (1.5 x 100 mg) PO DAILY 90 days quetiapine ER 600 mg PO BEDTIME vilazodone 40 mg PO QAM Tobacco use date assessed: 10/06/23 Dental Screening Dental Screen Date: 10/06/23 Did you have a dental visit in the last 12 months?: Yes Did you have a dental problem in the last 6 months where you did not have access to dental care?: No Was dental information given to patient?: Patient has dentist HPI f/u hypertension, chronic conditions HPI Details 58 y/o male presents to f/u hypertension , chronic conditions. Followed by Nephrology for CRF. Had seen them last 07/26/23 and continues to f/u with them. Blood pressure today 132/80, 42p. He is on metoprolol 150mg, amlodipine 10mg daily. He notes exercise tolerance is okay. Pt states he is concerned about his pulse today. HPI Comments History of Present Illness Details Documentation assistance for Parviz Aguero MD, was provided by Virgilio Munoz, [employer] on 10/06/2023 at 11:40 AM EST. I, Dr. Ageuro, have read, observed, and verified documentation. PFSH Family History Other Mental health disorder Social History Housing: Apartment Alcohol intake: current Patient Tobacco Use Status: Never used Tobacco e-Cigarette/Vaping Use: Never Used Second Hand Smoke Exposure: No service: No Current occupational status: disabled Current occupational exposures/hazards: No Cognitive needs: No Hearing needs: No Vision needs: No Questionnaire Thrive Questionnaire Date Thrive assessed: 04/21/22 DIANE-7 AMB Questionnaire DIANE-7 Date DIANE - 7 assessed: 01/27/22 Source: Developed by Drs. Rafal Conway, Gabby Roberts, Gerry Vogt and colleagues, with an educational isabelle from [employer] Review of Systems Const Denies chills, Denies fatigue, Denies fever(s), Denies headache(s) and Denies weakness ENT Denies dizziness and Denies headache(s) Card Denies dyspnea Resp Denies cough, Denies dyspnea, Denies wheezing and Denies other (shortness of breath) Musc Denies numbness and Denies tingling Neuro Denies dizziness, Denies headache(s), Denies numbness, Denies tingling and Denies weakness Psych Denies anxiety and Denies depression Endo Denies fatigue Aller/Immun Denies wheezing Physical exam (Primary Care) Vital Signs: Last Vital Signs Pulse 42 L 10/06/23 11:10 BP 132/80 10/06/23 11:10 Pulse Ox 99 10/06/23 11:10 Oxygen Delivery Method Room Air 10/06/23 11:10 BMI result Body Mass Index 31.4 Tobacco/Smoking Status: Tobacco use Status Tobacco use date assessed 10/06/23 10/06/23 11:21 Patient Tobacco Use Status Never used Tobacco 10/06/23 11:11 e-Cigarette/Vaping Use Never Used 10/06/23 11:11 Thrive Assessment: Date of Thrive Assessment Date Thrive assessed 04/21/22 10/06/23 11:11 Const General: well developed; No acute distress Nutritional Appearance: well nourished Orientation/consciousness: patient oriented x3 HENMT Head: Yes normocephalic and Yes atraumatic Eyes General: appearance normal, both eyes and all related structures Pupils: Equal, round and reactive pupils present EOM: EOMs intact bilaterally Resp Effort & Inspection: normal respiratory effort Auscultation: clear to auscultation bilaterally Cardio Rate: bradycardic Rhythm: regular rhythm Heart sounds: S1 normal heart sound present, S2 normal heart sound present, no gallops, no murmurs and no rubs Neuro General: patient oriented x3 and gait normal Cranial nerves: Yes Equal, round and reactive pupils present Psych Affect: normal affect Assessment and Plan Assessment & Plan (1) Essential hypertension: Code(s): I10 - Essential (primary) hypertension Plan: Blood?pressure?is?controlled.??Goal?is?less?than?140/90 However,?patient?has?significantly?low?heart?r ate?on?metoprolol?150?mg?and?he?notes?mild?lightheadedness?when?standing?up Will?decrease?metoprolol?to?100?mg?daily?and?continue?amlodipine Will?trial?a?very?small?dose?of?lisinopril; 2.5?mg?daily?an d?recheck?creatinine?in?a?month. (2) Chronic renal failure: Code(s): N18.9 - Chronic kidney disease, unspecified Plan: Followed?by??for?chronic?renal?failure This?appears?stable (3) Bradycardia: Code(s): R00.1 - Bradycardia, unspecified Plan: Bradycardia?with?heart?rate?in?low?40s?and?some?lightheadedness?with?standing?up Decreasing?metoprolol?as?above Orders: Orders Basic Metabolic Panel Today N18.31 - Chronic kidney disease, stage 3a, Z00.00 - Encounter for general adult medical examination without abnormal findings Medications: New lisinopril 2.5 mg PO DAILY 30 days 30 tabs 1RF Changed From metoprolol succinate ER 150 mg (1.5 x 100 mg) PO DAILY 90 days 135 tabs 4RF I10 - Essential (primary) hypertension To metoprolol succinate ER 100 mg PO DAILY 90 days 90 tabs 4RF I10 - Essential (primary) hypertension Coding Level of Care Code Est Pt Level 3 (02779) Diagnoses Essential hypertension I10 Chronic renal failure N18.9 Bradycardia R00.1
== END 2023-10-06 11:47 | disposition home or self-care (01) ==
PROVIDERS: PCP Family Medicine; Visit Provider Family Medicine
DX: I12.9 Hypertensive chronic kidney disease with stage 1 through stage 4 chronic kidney disease, or unspecified chronic kidney disease (principal); N18.9 Chronic kidney disease, unspecified; R00.1 Bradycardia, unspecified
CPT/HCPCS: 99213

== ENCOUNTER 2023-11-04 10:10 | Outpatient (REF) | payer OTHER, SELFPAY ==
[2023-11-04 11:36] LABS: Appearance Urine Clear; Color Urine Yellow; Glucose Urine UA Negative (Negative); Leukocyte Esterase Urine Negative (Negative); Nitrite Urine Negative (Negative); PH 7.5 (5.0-9.0); Urine Blood Negative (Negative); Urine Ketones Negative (Negative); Urine Protein Negative (Neg-Trace)
[2023-11-04 12:11] LABS: Creatinine, mg/dL 146.51
[2023-11-04 12:34] LABS: Anion Gap 15 (12-20); Blood Urea Nitrogen 20 mg/dL (9-16); Calcium 9.8 mg/dL (8.4-10.2); Carbon Dioxide 25 mmol/L (22-29); Chloride 105 mmol/L (96-108); Estimated Glomerular Filt Rate 40; Glucose Random 91 mg/dL (60-115); Potassium 4.7 mmol/L (3.3-5.1); Sodium 140 mmol/L (135-145)
[2023-11-04 13:00] LABS: Creatinine (CrCl) 1.76 mg/dL (0.5-1.4); Creatinine Clearance 109.8 mL/min (85-125); Creatinine, 24Hr Urine 2.8 G/Day (1.0-2.0); Total Volume 24 Hour Urine 1900 mL
== END 2023-11-04 10:11 | disposition home or self-care (01) ==
LOC: HO.WFDLDS 10:10
PROVIDERS: Internal Medicine Nephrology; Visit Provider Family Medicine
DX: Z00.00 Encounter for general adult medical examination without abnormal findings (principal); I12.9 Hypertensive chronic kidney disease with stage 1 through stage 4 chronic kidney disease, or unspecified chronic kidney disease; N18.30 Chronic kidney disease, stage 3 unspecified
CPT/HCPCS: 36415; 80048; 81003; 82575

== ENCOUNTER 2023-11-18 10:26 | Outpatient (AMB) | payer OTHER, SELFPAY ==
--- NOTE | 2023-11-18 10:30 | A.OFFPC_ITS ---
Vital Signs 11/18/23 10:33 11/18/23 11:01 Height 6 ft 1 in Weight 235 lb BMI 31.0 BP 118/70 Blood Pressure Location Lt brachial Position Sitting Respiration 18 Pulse 49 L 54 Pulse Source Pulse Oximeter Auscultation Temp 98.3 F Temp Source Oral Pulse Oximetry (%) 98 Oxygen Delivery Method Room Air Intake Visit Reasons: f/u hypertension, CRF Intake Note: follow up for hypertension Allergies Seasonal Allergies Allergy (Mild, Verified 11/18/23 10:31) Sneezing Medication List - Last Reconciled 11/18/23 by Parviz Aguero MD allopurinol 200 mg (2 x 100 mg) PO DAILY amlodipine 10 mg PO DAILY 90 days aripiprazole 5 mg PO DAILY atorvastatin 20 mg PO BEDTIME azelastine 1 spray intranasal BID cetirizine 10 mg PO DAILY cyclobenzaprine 10 mg PO TID PRN diclofenac sodium 1% 2 grams topical QID 30 days fluocinonide 0.05% appl topical DAILY PRN fluticasone propionate 50 mcg/actuation 1 spray intranasal DAILY lisinopril 2.5 mg PO DAILY 30 days melatonin mg PO BEDTIME metoprolol succinate ER 100 mg PO DAILY 90 days quetiapine ER 600 mg PO BEDTIME vilazodone 40 mg PO QAM Tobacco use date assessed: 10/06/23 Dental Screening Dental Screen Date: 10/06/23 HPI f/u hypertension, CRF HPI Details 58 y/o male presents to f/u hypertension with chronic renal failure. Had added a small dose of lisinopril - 2.5mg daily. Had decreased his metoprolol to 100mg daily. Labs drawn 11/04/23. Reviewed labs with pt. Creatinine level 1.68 to 1.76 mg/dL. Blood pressure today 118/70, 49p. PFSH Family History Other Mental health disorder Social History Housing: Apartment Alcohol intake: current Patient Tobacco Use Status: Never used Tobacco e-Cigarette/Vaping Use: Never Used Second Hand Smoke Exposure: No service: No Current occupational status: disabled Current occupational exposures/hazards: No Cognitive needs: No Hearing needs: No Vision needs: No Questionnaire Thrive Questionnaire Date Thrive assessed: 04/21/22 DIANE-7 AMB Questionnaire DIANE-7 Date DIANE - 7 assessed: 01/27/22 Source: Developed by Drs. Rafal Conway, Gabby Roberts, Gerry Vogt and colleagues, with an educational isabelle from [employer]. Review of Systems Const Denies chills, Denies fatigue, Denies fever(s), Denies headache(s) and Denies weakness ENT Denies dizziness and Denies headache(s) Card Denies dyspnea Resp Denies cough, Denies dyspnea, Denies wheezing and Denies other (shortness of breath) Musc Denies numbness and Denies tingling Neuro Denies dizziness, Denies headache(s), Denies numbness, Denies tingling and Denies weakness Psych Denies anxiety and Denies depression Endo Denies fatigue Aller/Immun Denies wheezing Physical exam (Primary Care) Vital Signs: Last Vital Signs Temp 98.3 F 11/18/23 10:33 Pulse 49 L 11/18/23 10:33 Resp 18 11/18/23 10:33 BP 118/70 11/18/23 10:33 Pulse Ox 98 11/18/23 10:33 Oxygen Delivery Method Room Air 11/18/23 10:33 BMI result Body Mass Index 31.0 Tobacco/Smoking Status: Tobacco use Status Tobacco use date assessed 10/06/23 11/18/23 10:36 Patient Tobacco Use Status Never used Tobacco 11/18/23 10:36 e-Cigarette/Vaping Use Never Used 11/18/23 10:36 Thrive Assessment: Date of Thrive Assessment Date Thrive assessed 04/21/22 11/18/23 10:36 Const General: well developed; No acute distress Nutritional Appearance: well nourished Orientation/consciousness: patient oriented x3 HENMT Head: Yes normocephalic and Yes atraumatic Eyes General: appearance normal, both eyes and all related structures Pupils: Equal, round and reactive pupils present EOM: EOMs intact bilaterally Resp Effort & Inspection: normal respiratory effort Neuro General: patient oriented x3 and gait normal Cranial nerves: Yes Equal, round and reactive pupils present Psych Affect: normal affect Assessment and Plan Assessment & Plan (1) Essential hypertension: Code(s): I10 - Essential (primary) hypertension Plan: Blood?pressure?appears?well?controlled.??Goal?is?less?than?140/90 Had?added?a?small?dose?of?LONA?inhibitor,?lisinopril?and?continued?his?amlodipine .??Had?decreased?metoprolol?as?he?was?experiencing?dizziness?and?heart?rate?was? 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 Will?have?him?try?decreasing?metoprolol?again?from?100?mg?daily?to?75?mg?daily.? ?Gave?him?a?script?for?a?blood?pressure?monitor?and?he?will?resume?100?mg?daily? if?SBP?is?consistently?greater?than?140. Hydrate?well (2) Chronic renal failure: Code(s): N18.9 - Chronic kidney disease, unspecified Plan: As?above,?creatinine?did?take?a?small,?expected?bump?with?addition?of?LONA?inhibi tor Rechecking?this?again?today?to?ensure?stability. Follow-up?with?television tube inspector?as?recommend Orders: Orders Basic Metabolic Panel Today N18.9 - Chronic kidney disease, unspecified, Z00.00 - Encounter for general adult medical examination without abnormal findings Medications: New blood pressure monitor Automatic, Digital. Dx: I10. Daily As directed, 999 days/lifetime 1 ea 0RF I10 - Essential (primary) hypertension blood pressure monitor Automatic, Digital. Dx: I10. Daily As directed, 999 days/lifetime 1 ea 0RF I10 - Essential (primary) hypertension Changed From metoprolol succinate ER 100 mg PO DAILY 90 days 90 tabs 4RF I10 - Essential (primary) hypertension To metoprolol succinate ER 75 mg (1.5 x 50 mg) PO DAILY 30 days 45 tabs 4RF I10 - Essential (primary) hypertension Coding Level of Care Code Est Pt Level 3 (29335) Diagnoses Essential hypertension I10 Chronic renal failure N18.9
[2023-11-18 10:33] VITALS: BP 118/70; PULSE 49; RESP 18; TEMP 36.8; O2SAT 98; BMI 31.0
[2023-11-18 11:01] VITALS: PULSE 54
== END 2023-11-18 11:10 | disposition home or self-care (01) ==
PROVIDERS: PCP Family Medicine; Visit Provider Family Medicine
DX: I12.9 Hypertensive chronic kidney disease with stage 1 through stage 4 chronic kidney disease, or unspecified chronic kidney disease (principal); N18.9 Chronic kidney disease, unspecified
CPT/HCPCS: 99213

== ENCOUNTER 2024-01-24 10:00 | Outpatient (AMB) | payer OTHER, SELFPAY ==
--- NOTE | 2024-01-24 10:11 | HO.NEPHOV ---
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 He denies using any creatinine. He does not have any chest pain, shortness of breath, paroxysmal nocturnal dyspnea, orthopnea, pedal edema or urinary symptoms. His blood pressure has been at goal. He does not take any excessive nonsteroidal anti-inflammatories. He has no new systemic complaints. His serum creatinine had been stable. [facility] Family History Other Mental health disorder Social History Housing: Apartment Alcohol intake: current Patient Tobacco Use Status: Never used Tobacco e-Cigarette/Vaping Use: Never Used Second Hand Smoke Exposure: No service: No Current occupational status: disabled Current occupational exposures/hazards: No Cognitive needs: No Hearing needs: No Vision needs: No Review of Systems Const All systems reviewed & are unremarkable except as noted in HPI and below Physical Exam Vital Signs: Last Vital Signs Pulse 40 L 01/24/24 10:14 BP 120/80 01/24/24 10:14 Pulse Ox 98 01/24/24 10:14 Oxygen Delivery Method Room Air 01/24/24 10:14 BMI result Body Mass Index 30.6 Results Reviewed Nephrology Results: Hgb 15.2 g/dl (14.0-18.0) 09/27/23 WBC 4.4 X10*3/uL (4.8-10.8) L 09/27/23 Plt Count 216 X10*3/uL (160-400) 09/27/23 Sodium 140 mmol/L (135-145) 11/04/23 Potassium 4.7 mmol/L (3.3-5.1) 11/04/23 Chloride 105 mmol/L (96-108) 11/04/23 Carbon Dioxide 25 mmol/L (22-29) 11/04/23 BUN 20 mg/dL (9-16) H 11/04/23 Creatinine 1.76 mg/dL (0.5-1.4) H 11/04/23 Calcium 9.8 mg/dL (8.4-10.2) 11/04/23 PTH Intact 117.7 pg/mL (8.7-77.1) H 09/27/23 Urine Protein Negative mg/dL (Neg-Trace) 11/04/23 Urine Creatinine 307.09 mg/dL 09/27/23 Protein/Creatinin Ratio 0.04 (<0.2) 07/20/23 Assessment & Plan Assessment & Plan (1) CKD stage 3a, GFR 45-59 ml/min: Code(s): N18.31 - Chronic kidney disease, stage 3a Category: Medical (2) Essential hypertension: Code(s): I10 - Essential (primary) hypertension Category: Medical Plan Eben has CKD stage 3 and hypertension. His renal functions have been stable. He does not take any creatinine supplements now. He has no proteinuria. Extensive workup done but short of renal biopsy did not reveal any etiology. His blood pressure is at goal. It is likely that he has suffered a renal insult in the past which has dropped his GFR. If his serum creatinine rises I will consider doing a renal biopsy. HIs 24 hour urine collection for creatinine clearance was reassuring. He maintains good hydration. He avoids nonsteroidal anti-inflammatories. I did not make any medication changes at this visit. Answered all questions. Follow-up appointment given Orders: Orders Electrolytes 6 Months N18.31 - Chronic kidney disease, stage 3a Creatinine 6 Months N18.31 - Chronic kidney disease, stage 3a Blood Urea Nitrogen 6 Months N18.31 - Chronic kidney disease, stage 3a Coding Level of Care Code Est Pt Level 4 (67325) Diagnoses CKD stage 3a, GFR 45-59 ml/min N18.31 Essential hypertension I10
[2024-01-24 10:14] VITALS: BP 120/80; PULSE 40; O2SAT 98; BMI 30.6
== END 2024-01-24 10:39 | disposition home or self-care (01) ==
PROVIDERS: PCP Family Medicine; Visit Provider Internal Medicine Nephrology
DX: N18.31 Chronic kidney disease, stage 3a (principal); I10 Essential (primary) hypertension
CPT/HCPCS: 99214

== ENCOUNTER → 2024-01-24 10:00 | Outpatient (BNVA) | payer OTHER, SELFPAY | PROVIDERS: PCP Family Medicine; Visit Provider Internal Medicine Nephrology | DX: I12.9 Hypertensive chronic kidney disease with stage 1 through stage 4 chronic kidney disease, or unspecified chronic kidney disease (principal); N18.31 Chronic kidney disease, stage 3a | CPT/HCPCS: 99212 ==

== ENCOUNTER 2024-02-14 08:39 | Outpatient (REF) | payer OTHER, SELFPAY ==
[2024-02-14 11:49] LABS: Anion Gap 14 (12-20); Blood Urea Nitrogen 19 mg/dL (9-16); Calcium 9.9 mg/dL (8.4-10.2); Carbon Dioxide 25 mmol/L (22-29); Chloride 106 mmol/L (96-108); Estimated Glomerular Filt Rate 44; Glucose Random 92 mg/dL (60-115); Potassium 3.8 mmol/L (3.3-5.1); Sodium 141 mmol/L (135-145)
== END 2024-02-14 08:40 | disposition home or self-care (01) ==
LOC: HO.WFDLDS 08:39
PROVIDERS: Visit Provider Family Medicine
DX: Z00.00 Encounter for general adult medical examination without abnormal findings (principal); N18.9 Chronic kidney disease, unspecified
CPT/HCPCS: 36415; 80048

== ENCOUNTER 2024-02-24 11:22 | Outpatient (AMB) | payer OTHER, SELFPAY ==
--- NOTE | 2024-02-24 11:32 | MHC.PC.OV ---
Vital Signs 02/24/24 11:34 Height 6 ft 1 in Weight 232 lb 6 oz BMI 30.7 BP 126/68 Blood Pressure Location Lt brachial Position Sitting Respiration 14 Pulse 51 Pulse Source Pulse Oximeter Temp 97.9 F Temp Source Oral Pulse Oximetry (%) 99 Oxygen Delivery Method Room Air Intake Visit Reasons: F/U Hypertension Intake Note: f/u HTN Allergies Seasonal Allergies Allergy (Mild, Verified 02/24/24 11:32) Sneezing Tobacco use date assessed: 10/06/23 Dental Screening Dental Screen Date: 10/06/23 HPI F/U Hypertension HPI Details 59 y/o male presents to f/u hypertension. Last creatinine level 1.61 02/14/24. Blood pressure today 126/68, 51p. He is on lisinopril 2.5mg, metoprolol 75mg, amlodipine 10mg daily. HPI Comments History of Present Illness Details Documentation assistance for Parviz Aguero MD, was provided by Virgilio Munoz,? [employer] on 02/24/2024 at 11:46 AM EST. I, Dr. Aguero, have read, observed, and verified documentation. PFSH Family History Other Mental health disorder Social History Housing: Apartment Alcohol intake: current Patient Tobacco Use Status: Never used Tobacco e-Cigarette/Vaping Use: Never Used Second Hand Smoke Exposure: No service: No Current occupational status: disabled Current occupational exposures/hazards: No Cognitive needs: No Hearing needs: No Vision needs: No Questionnaire PHQ-9 Over the last 2 weeks, how often have you been bothered by any of the following problems? 1. Little interest or pleasure in doing things: nearly every day 2. Feeling down, depressed, or hopeless: not at all 3. Trouble falling or staying asleep, or sleeping too much: not at all 4. Feeling tired or having little energy: not at all 5. Poor appetite or overeating: not at all 6. Feeling bad about yourself - or that you are a failure or have let yourself or your family down: not at all 7. Trouble concentrating on things, such as reading the newspaper or watching television: not at all 8. Moving or speaking so slowly that other people could have noticed. Or the opposite - being so fidgety or restless that you have been moving around a lot more than usual: not at all 9. Thoughts that you would be better off or of hurting yourself in some way: not at all Total score: 3 Source: Developed by Drs. Rafal Conwya, Gabby Roberts, Gerry Vogt and colleagues, with an educational isabelle from [employer]. Thrive Questionnaire Date Thrive assessed: 02/23/24 I am a: Patient What is your living situation today?: I have a steady place to live Within the past 12 months, did the food you bought not last and you didn't have the money to get more?: Often true Within the past 12 months, did you worry whether your food would run out before you got money to buy more?: I choose not to answer this question Do you have trouble paying for medicines?: No Do you have trouble getting transportation to medical appointments?: No Do you have trouble paying your heating and electricity bill?: No Do you have trouble taking care of your child, family member or friend?: No Do you have trouble with day-to-day activities such as bathing, preparing meals, shopping, managing finances, etc.?: No Are you currently unemployed and looking for a job?: No Are you interested in more education?: I choose not to answer this question Please select the resources that you would like help with: None Currently or been in a relationship where the following occur: I choose not to answer THRIVE Score: 1 AUDIT C Alcohol Use Questionnaire (AUDIT-C) 1. How often do you have a drink containing alcohol?: Never Total Score: 0 DIANE-7 AMB Questionnaire DIANE-7 Date DIANE - 7 assessed: 01/27/22 Feeling nervous, anxious, or on edge: 1 = Several days Not being able to stop or control worryin = Not at all Worrying too much about different things: 0 = Not at all Trouble relaxin = Not at all Being so restless that it is hard to sit still: 0 = Not at all Becoming easily annoyed or irritable: 0 = Not at all Feeling afraid as if something awful might happen: 0 = Not at all Total DIANE-7 score (0-4 normal; 5-9 mild; 10-14 moderate; 15-21 severe): 1 Source: Developed by Drs. Rafal Conway, Gabby Roberts, Gerry Vogt and colleagues, with an educational isabelle from [employer]. Review of Systems Const Denies chills, Denies fatigue, Denies fever(s), Denies headache(s) and Denies weakness ENT Denies dizziness and Denies headache(s) Card Denies dyspnea Resp Denies cough, Denies dyspnea, Denies wheezing and Denies other (shortness of breath) Musc Denies numbness and Denies tingling Neuro Denies dizziness, Denies headache(s), Denies numbness, Denies tingling and Denies weakness Psych Denies anxiety and Denies depression Endo Denies fatigue Aller/Immun Denies wheezing Physical exam (Primary Care) Vital Signs: Last Vital Signs Temp 97.9 F 02/24/24 11:34 Pulse 51 02/24/24 11:34 Resp 14 02/24/24 11:34 BP 126/68 02/24/24 11:34 Pulse Ox 99 02/24/24 11:34 Oxygen Delivery Method Room Air 02/24/24 11:34 BMI result Body Mass Index 30.7 Tobacco/Smoking Status: Tobacco use Status Tobacco use date assessed 10/06/23 02/24/24 11:38 Patient Tobacco Use Status Never used Tobacco 02/24/24 11:38 e-Cigarette/Vaping Use Never Used 02/24/24 11:38 PHQ-9: PHQ-9 Score PHQ-9: Total score 3 02/24/24 11:38 Thrive Assessment: Date of Thrive Assessment Date Thrive assessed 02/23/24 02/24/24 11:38 Currently or been in a relationship where the following occur: I choose not to answer Const General: well developed; No acute distress Nutritional Appearance: well nourished Orientation/consciousness: patient oriented x3 [facility] Head: Yes normocephalic and Yes atraumatic Eyes General: appearance normal, both eyes and all related structures Pupils: Equal, round and reactive pupils present EOM: EOMs intact bilaterally Resp Effort & Inspection: normal respiratory effort Cardio Rate: bradycardic Back/Spine/Pelvis Other: No CVA tenderness to percussion Mild tendernes to palpation Neuro General: patient oriented x3 and gait normal Cranial nerves: Yes Equal, round and reactive pupils present Psych Affect: normal affect Coding Level of Care Code Est Pt Level 3 (91725) Diagnoses Essential hypertension I10 Chronic renal failure N18.9 Bradycardia R00.1 Low back pain M54.50 Assessment & Plan Assessment & Plan (1) Essential hypertension: Code(s): I10 - Essential (primary) hypertension Category: Medical Plan: Blood?pressure?is?controlled.??Had?decreased?metoprolol?and?added?some?lisinopril?because?his?heart?rate?was?quite?low. Heart?rate?has?improved?though?still?low EKG: ?Sinus?bradycardia 50?beats?per?minute,?normal?axis,?no?hypertrophy,?no?ST-T-wave?changes. No?obvious?cardiac?abnormality.??Likely?rather?sensitive?to?metoprolol. Will?ease?up?on?this?further. Decrease?metoprolol?from?75?mg?daily?to?50?mg?daily Will?increase?lisinopril?from?2.5?mg?daily?to?5?mg?daily.??Will?watch?his?creatinine?level. Prefer?not?to?increase?further. Continue?amlodipine?as?prescribed (2) Chronic renal failure: Code(s): N18.9 - Chronic kidney disease, unspecified Category: Medical Plan: Creatinine?level?at?baseline. 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 This?appears?to?be?musculoskeletal?right?low?back?pain. Avoiding?NSAIDs?due?to?renal?failure He?can?use?Tylenol,?ice/heat?and?gentle?stretching. If?not?improving?would?image?and?consider?physical?therapy?or?referral?to?Ortho Orders: Orders AMB EKG-In Office Today R00.1 - Bradycardia, unspecified Basic Metabolic Panel Today I10 - Essential (primary) hypertension, Z00.00 - Encounter for general adult medical examination without abnormal findings Microalbumin, Random (w Creat) Today I10 - Essential (primary) hypertension Medications: Changed From diclofenac sodium 1% apply to single elbow, wrist or hand; for hand includes palm/fingers/back of hand 2 grams topical QID 30 days 100 grams 1RF To diclofenac sodium 1% 2 grams topical QID 30 days 100 grams 1RF
[2024-02-24 11:34] VITALS: BP 126/68; PULSE 51; RESP 14; TEMP 36.6; O2SAT 99; BMI 30.7
== END 2024-02-24 12:14 | disposition home or self-care (01) ==
PROVIDERS: PCP Family Medicine; Visit Provider Family Medicine
DX: I12.9 Hypertensive chronic kidney disease with stage 1 through stage 4 chronic kidney disease, or unspecified chronic kidney disease (principal); N18.9 Chronic kidney disease, unspecified; R00.1 Bradycardia, unspecified; M54.50 Low back pain, unspecified

== ENCOUNTER → 2024-02-24 11:22 | Outpatient (BNVA) | payer OTHER, SELFPAY | PROVIDERS: PCP Family Medicine; Visit Provider Family Medicine | DX: I12.9 Hypertensive chronic kidney disease with stage 1 through stage 4 chronic kidney disease, or unspecified chronic kidney disease (principal); N18.9 Chronic kidney disease, unspecified; R00.1 Bradycardia, unspecified; M54.50 Low back pain, unspecified | CPT/HCPCS: 96127; 99212 ==

== ENCOUNTER 2024-05-22 09:41 | Outpatient (REF) | payer OTHER, SELFPAY ==
--- OUTSIDE RECORDS SUMMARY | 2024-05-22 10:48 | XMS_ITS | Clinical Summary ---
Author Organization [facility] Address [address] [place] [address] Phone Care Team Providers Care Zipper Measurer Name Role Phone Parviz Aguero MD Primary Care Provider Allergies No known active allergies Medications allopurinol (ZYLOPRIM) 100 MG tablet Take 1 tablet by mouth 1 (one) time each day Active amLODIPine (NORVASC) 10 MG tablet Take 1 tablet by mouth 1 (one) time each day Active fluticasone (FLONASE) 50 MCG/ACT nasal spray Active loratadine (CLARITIN) 10 MG tablet Take 1 tablet by mouth 1 (one) time each day Active Melatonin 5 MG tablet Take 1 tablet by mouth at bed time Active QUEtiapine (SEROquel) 300 MG tablet Take 1 tablet by mouth 1 (one) time each day Active Vilazodone HCl (Viibryd) 40 MG tablet Take 1 tablet by mouth 1 (one) time each day Active metoprolol succinate XL (TOPROL-XL) 50 MG 24 hr tablet Take 75 mg by mouth 1 (one) time each day 06/03/2020 Active cetirizine (ZyrTEC) 10 MG tablet Take 10 mg by mouth 1 (one) time each day 05/22/2020 Active atorvastatin (LIPITOR) 20 MG tablet Take 20 mg by mouth at bed time 10/16/2020 Active ARIPiprazole (ABILIFY) 5 MG tablet Take 5 mg by mouth 1 (one) time each day 05/20/2022 Active Active Problems Problem Noted Date Diagnosed Date Hypertension 12/24/2020 Stage 3a chronic kidney disease 06/13/2020 Hypertensive heart and renal disease with (congestive) heart failure 06/13/2020 Renal failure syndrome 06/13/2020 Family History Medical History Relation Comments Heart disease Mother Hypertension Mother Relation Status Comments Father Mother Social History Tobacco Use Types Packs/Day Years Used Date Smoking Tobacco: Never Smokeless Tobacco: Never Tobacco Cessation:Counseling Given: Not Answered Alcohol Use Standard Drinks/Week Comments No 0 (1 standard drink = 0.6 oz pur e alcohol) Sex and Gender Information Value Date Recorded Sex Assigned at Not on file Legal Sex Male 4:40 PM EST Gender Identity Not on file Sexual Orientation Not on file Last Filed Vital Signs Vital Sign Reading Time Taken Comments Blood Pressure 112/66 08/04/2022 2:51 PM EDT Pulse 47 08/04/2022 2:51 PM EDT Temperature - - Respiratory Rate - - Oxygen Saturation 98% 12/24/2020 2:12 PM EDT Inhaled Oxygen Concentration - - Weight 119 kg (263 lb) 08/04/2022 2:51 PM EDT Height 185.4 cm (6' 1 ) 08/29/2019 12:00 PM EDT Body Mass Index 34.7 08/29/2019 12:00 PM EDT Plan of Treatment Health Maintenance Due Date Last Done Comments Pneumococcal Vaccine: Pediat rics (0 to 5 Years) and At-Risk Patients (6 to 64 Years) (1 of 2 - PCV) 1971 Hepatitis B Vaccine (1 of 3 - 19+ 3-dose series) 01/19 Colorectal Cancer Screening: Annual FOBT 01/20/2016 Colorectal Cancer Screening: Colonoscopy 01/20/2016 Colorectal Cancer Screening: Sigmoidoscopy 01/20/2016 Influenza Vaccine (#1) 2023 Insurance ([id number]) PATRICIA SALCIDO [id number] [place] [address] ([id number]) PATRICIA SALCIDO [id number] Care Teams Zipper Measurer Relationship Specialty Start Date End Date Parviz Aguero MD [address] [address] PCP - General Family Medicine 12/24/20
[2024-05-22 11:41] LABS: Anion Gap 10 (12-20); Blood Urea Nitrogen 26 mg/dL (9-16); Calcium 9.6 mg/dL (8.4-10.2); Carbon Dioxide 27 mmol/L (22-29); Chloride 107 mmol/L (96-108); Estimated Glomerular Filt Rate 50; Glucose Random 90 mg/dL (60-115); Sodium 140 mmol/L (135-145)
[2024-05-22 13:10] LABS: Creatinine Urine 182.88 mg/dL; Microalbum/Creatinine Ratio Ur 4.3 ug/mg cr (<30)
== END 2024-05-22 09:42 | disposition home or self-care (01) ==
LOC: HO.WFDLDS 09:41
PROVIDERS: Visit Provider Family Medicine
DX: I10 Essential (primary) hypertension (principal); Z00.00 Encounter for general adult medical examination without abnormal findings
CPT/HCPCS: 36415; 80048; 82043; 82570

== ENCOUNTER 2024-05-31 10:26 | Outpatient (AMB) | payer OTHER, SELFPAY ==
--- NOTE | 2024-05-31 10:51 | A.OFFPC_ITS ---
Vital Signs 05/31/24 10:56 Height 6 ft 1 in Weight 226 lb 4 oz BMI 29.8 BP 110/60 Blood Pressure Location Lt brachial Position Sitting Respiration 12 Pulse 54 Pulse Source Pulse Oximeter Temp 98.1 F Temp Source Oral Pulse Oximetry (%) 98 Oxygen Delivery Method Room Air Intake Visit Reasons: f/u hypertension, CRF Intake Note: f/u htn and crf Supervisor Rod Placing Required: No Allergies Seasonal Allergies Allergy (Mild, Verified 05/31/24 10:55) Sneezing Tobacco use date assessed: 10/06/23 Dental Screening Dental Screen Date: 10/06/23 HPI f/u hypertension, CRF HPI Details 59 y/o male presents to f/u hypertension , CRF. Blood pressure today 110/60, 54p. He is on lisinopril 5mg, metoprolol 50mg daily, amlodipine 10mg. Labs drawn 05/22/24. Reviewed labs with pt. Creatinine level improved from 1.61 to 1.45 mg/dL. Has complaints of vision changes L eye. PFSH Family History Other Mental health disorder Social History Housing: Apartment Alcohol intake: current Patient Tobacco Use Status: Never used Tobacco e-Cigarette/Vaping Use: Never Used Second Hand Smoke Exposure: No service: No Current occupational status: disabled Current occupational exposures/hazards: No Cognitive needs: No Hearing needs: No Vision needs: No Questionnaire PHQ-9 Over the last 2 weeks, how often have you been bothered by any of the following problems? 1. Little interest or pleasure in doing things: not at all 2. Feeling down, depressed, or hopeless: not at all 3. Trouble falling or staying asleep, or sleeping too much: not at all 4. Feeling tired or having little energy: not at all 5. Poor appetite or overeating: not at all 6. Feeling bad about yourself - or that you are a failure or have let yourself or your family down: not at all 7. Trouble concentrating on things, such as reading the newspaper or watching television: not at all 8. Moving or speaking so slowly that other people could have noticed. Or the opposite - being so fidgety or restless that you have been moving around a lot more than usual: not at all 9. Thoughts that you would be better off or of hurting yourself in some way: not at all Total score: 0 Source: Developed by Drs. Rafal Conway, Gabby Roberts, Gerry Vogt and colleagues, with an educational isabelle from [employer]. Thrive Questionnaire Date Thrive assessed: 05/24/24 I am a: Patient What is your living situation today?: I have a steady place to live Within the past 12 months, did the food you bought not last and you didn't have the money to get more?: Never true Within the past 12 months, did you worry whether your food would run out before you got money to buy more?: Sometimes True Do you have trouble paying for medicines?: No Do you have trouble getting transportation to medical appointments?: No Do you have trouble paying your heating and electricity bill?: No Do you have trouble taking care of your child, family member or friend?: No Do you have trouble with day-to-day activities such as bathing, preparing meals, shopping, managing finances, etc.?: No Are you currently unemployed and looking for a job?: No Are you interested in more education?: No Please select the resources that you would like help with: None Currently or been in a relationship where the following occur: I choose not to answer THRIVE Score: 1 AUDIT C Alcohol Use Questionnaire (AUDIT-C) 1. How often do you have a drink containing alcohol?: Never 3. How often do you have six or more drinks on one occasion?: Never Total Score: 0 DIANE-7 AMB Questionnaire DIANE-7 Date DIANE - 7 assessed: 01/27/22 Feeling nervous, anxious, or on edge: 0 = Not at all Not being able to stop or control worryin = Not at all Worrying too much about different things: 0 = Not at all Trouble relaxin = Not at all Being so restless that it is hard to sit still: 0 = Not at all Becoming easily annoyed or irritable: 0 = Not at all Feeling afraid as if something awful might happen: 0 = Not at all Total DIANE-7 score (0-4 normal; 5-9 mild; 10-14 moderate; 15-21 severe): 0 Source: Developed by Drs. Rafal Conway, Gabby Roberts, Gerry Vogt and colleagues, with an educational isabelle from [employer] Review of Systems Const Denies chills, Denies fatigue, Denies fever(s), Denies headache(s) and Denies weakness ENT Denies dizziness and Denies headache(s) Card Denies dyspnea Resp Denies cough, Denies dyspnea, Denies wheezing and Denies other (shortness of breath) Musc Denies numbness and Denies tingling Neuro Denies dizziness, Denies headache(s), Denies numbness, Denies tingling and Denies weakness Psych Denies anxiety and Denies depression Endo Denies fatigue Aller/Immun Denies wheezing Physical exam (Primary Care) Vital Signs: Last Vital Signs Temp 98.1 F 05/31/24 10:56 Pulse 54 05/31/24 10:56 Resp 12 05/31/24 10:56 BP 110/60 05/31/24 10:56 Pulse Ox 98 05/31/24 10:56 Oxygen Delivery Method Room Air 05/31/24 10:56 BMI result Body Mass Index 29.8 Tobacco/Smoking Status: Tobacco use Status Tobacco use date assessed 10/06/23 05/31/24 10:52 Patient Tobacco Use Status Never used Tobacco 05/31/24 10:52 e-Cigarette/Vaping Use Never Used 05/31/24 10:52 PHQ-9: PHQ-9 Score PHQ-9: Total score 0 05/31/24 11:20 Thrive Assessment: Date of Thrive Assessment Date Thrive assessed 05/24/24 05/31/24 10:52 Currently or been in a relationship where the following occur: I choose not to answer Const General: well developed; No acute distress Nutritional Appearance: well nourished Orientation/consciousness: patient oriented x3 [facility] Head: Yes normocephalic and Yes atraumatic Eyes General: appearance normal, both eyes and all related structures Pupils: Equal, round and reactive pupils present EOM: EOMs intact bilaterally Resp Effort & Inspection: normal respiratory effort Auscultation: clear to auscultation bilaterally Cardio Rate: regular rate Rhythm: regular rhythm Heart sounds: S1 normal heart sound present, S2 normal heart sound present, no gallops, no murmurs and no rubs Neuro General: patient oriented x3 and gait normal Cranial nerves: Yes Equal, round and reactive pupils present Psych Affect: normal affect Coding Level of Care Code Est Pt Level 4 (31842) Diagnoses Essential hypertension I10 Chronic renal failure N18.9 Vision changes H53.9 Assessment & Plan Assessment & Plan (1) Essential hypertension: Code(s): I10 - Essential (primary) hypertension Category: Medical Plan: Blood?pressure?is?well?controlled.??Goal?is?less?than?140/90 Had?decreased?metoprolol?and?increased?lisinopril?slightly?at?a?prior? visit?few?to?bradycardia. Still?mildly?bradycardic?but?asymptomatic. Continue?current?medication?regimen (2) Chronic renal failure: Code(s): N18.9 - Chronic kidney disease, unspecified Category: Medical Plan: Creatinine?level?continues?to?decrease?and?is?nearly?within?normal?range. EGFR?now?at?50 Continue?to?avoid?NSAIDs,?control?blood?pressure Hydrate?well He?has?a?follow-up?with?nephrology?in?a?couple?of months (3) Vision changes: Code(s): H53.9 - Unspecified visual disturbance Category: Medical Plan: Patient?notes?worsening?vision?changes,?left?worse?than?right Had?seen?eye?doctor?and [facility] but?no?longer?sees?them Will?make?a?referral Orders: Orders Comprehensive Met. Panel Today N18.31 - Chronic kidney disease, stage 3a Microalbumin, Random (w Creat) Today I10 - Essential (primary) hypertension, N18.31 - Chronic kidney disease, stage 3a Referrals Ophthalmology Referral H53.9 - Unspecified visual disturbance
[2024-05-31 10:56] VITALS: BP 110/60; PULSE 54; RESP 12; TEMP 36.7; O2SAT 98; BMI 29.8
--- OUTSIDE RECORDS SUMMARY | 2024-05-31 11:36 | XMS_ITS | Clinical Summary ---
Author Organization [facility] Address [address] [place] [address] Phone Care Team Providers Care Building Associate Name Role Phone Parviz Aguero MD Primary [...] Vaccine (#1) 2023 Insurance ([id number]) PATRICIA SALCIDO [id number] [place] [address] ([id number]) PATRICIA SALCIDO [id number] Care Teams Building Associate Relationship Specialty Start Date End Date Parviz Aguero MD [address] [address] PCP - General Family Medicine 12/24/20
== END 2024-05-31 11:29 | disposition home or self-care (01) ==
PROVIDERS: PCP Family Medicine; Visit Provider Family Medicine
DX: I12.9 Hypertensive chronic kidney disease with stage 1 through stage 4 chronic kidney disease, or unspecified chronic kidney disease (principal); N18.9 Chronic kidney disease, unspecified; H53.9 Unspecified visual disturbance

== ENCOUNTER → 2024-05-31 10:26 | Outpatient (BNVA) | payer OTHER, SELFPAY | PROVIDERS: PCP Family Medicine; Visit Provider Family Medicine | DX: I12.9 Hypertensive chronic kidney disease with stage 1 through stage 4 chronic kidney disease, or unspecified chronic kidney disease (principal); N18.9 Chronic kidney disease, unspecified; H53.9 Unspecified visual disturbance | CPT/HCPCS: 99212 ==

== ENCOUNTER 2024-07-17 09:08 | Outpatient (REF) | payer OTHER, SELFPAY ==
--- OUTSIDE RECORDS SUMMARY | 2024-07-17 10:04 | XMS_ITS | Clinical Summary ---
Author Organization [facility] Address [address] [place] [address] Phone Care Team Providers Care Tumblers Supervisor Name Role Phone Parviz Aguero MD Primary [...] Colorectal Cancer Screening: Sigmoidoscopy 01/20/2016 Influenza Vaccine (Season Ended) 2024 Insurance ([id number]) PATRICIA SALCIDO [id number] [place] [address] ([id number]) PATRICIA SALCIDO [phone] Care Teams Tumblers Supervisor Relationship Specialty Start Date End Date Parviz Aguero MD [address] [address] PCP - General Family Medicine 12/24/20
[2024-07-17 11:40] LABS: Anion Gap 9 (12-20); Blood Urea Nitrogen 27 mg/dL (9-16); Carbon Dioxide 26 mmol/L (22-29); Chloride 109 mmol/L (96-108); Estimated Glomerular Filt Rate 45; Potassium 4.1 mmol/L (3.3-5.1); Sodium 140 mmol/L (135-145)
== END 2024-07-17 09:09 | disposition home or self-care (01) ==
LOC: HO.WFDLDS 09:08
PROVIDERS: Visit Provider Internal Medicine Nephrology
DX: N18.31 Chronic kidney disease, stage 3a (principal)
CPT/HCPCS: 36415; 80051; 82565; 84520

== ENCOUNTER 2024-07-24 10:39 | Outpatient (AMB) | payer OTHER, SELFPAY ==
--- NOTE | 2024-07-24 11:09 | HO.NEPHOV ---
Vital Signs 07/24/24 11:12 Height 6 ft 1 in Weight 225 lb 6 oz BMI 29.7 BP 130/80 Blood Pressure Location Lt brachial Position Sitting Pulse 47 L Pulse Source Pulse Oximeter Pulse Oximetry (%) 98 Oxygen Delivery Method Room Air Intake Visit Reasons: 6 mon follow up Director Of Diversity And Inclusion Required: No Accompanied by: Self / Same As Patient Allergies Seasonal Allergies Allergy (Mild, Verified 07/24/24 11:12) Sneezing HPI Comments Details: Eben was seen in follow-up for his chronic kidney disease and hypertension. He denies taking any creatinine. He does not have any chest pain, shortness of breath, paroxysmal nocturnal dyspnea, orthopnea, pedal edema or urinary symptoms. His blood pressure has been at goal. He does not take any excessive nonsteroidal anti-inflammatories. He has no new systemic complaints. His serum creatinine had been stable. [facility] Family History Other Mental health disorder Social History Housing: Apartment Alcohol intake: current Patient Tobacco Use Status: Never used Tobacco e-Cigarette/Vaping Use: Never Used Second Hand Smoke Exposure: No service: No Current occupational status: disabled Current occupational exposures/hazards: No Cognitive needs: No Hearing needs: No Vision needs: No Review of Systems Const All systems reviewed & are unremarkable except as noted in HPI and below Physical Exam Vital Signs: Last Vital Signs Pulse 47 L 07/24/24 11:12 BP 130/80 07/24/24 11:12 Pulse Ox 98 07/24/24 11:12 Oxygen Delivery Method Room Air 07/24/24 11:12 BMI result Body Mass Index 29.7 Const General: comfortable and no acute distress Orientation/consciousness: patient oriented x3 HEENT Head: Yes normocephalic Mouth: Normal oral and palatal mucosa present Eyes EOM: EOMs intact bilaterally Neck Neck: Yes supple Resp Auscultation: clear to auscultation bilaterally Cardio Jugular venous distension: no JVD Rate: regular rate GI Palpation (GI): Soft to palpation Auscultation: normal bowel sounds General: Yes no CVA tenderness Back/Spine/Pelvis Back: no CVA tenderness Skin General skin exam: no rashes or lesions noted Neuro General: patient oriented x3 and moves all extremities Extrem General: Yes no pedal edema Results Reviewed Nephrology Results: Sodium 140 mmol/L (135-145) 07/17/24 Potassium 4.1 mmol/L (3.3-5.1) 07/17/24 Chloride 109 mmol/L (96-108) H 07/17/24 Carbon Dioxide 26 mmol/L (22-29) 07/17/24 BUN 27 mg/dL (9-16) H 07/17/24 Creatinine 1.60 mg/dL (0.5-1.4) H 07/17/24 Calcium 9.6 mg/dL (8.4-10.2) 05/22/24 Urine Protein Negative mg/dL (Neg-Trace) 11/04/23 Urine Creatinine 182.88 mg/dL 05/22/24 Assessment & Plan Assessment & Plan (1) CKD stage 3a, GFR 45-59 ml/min: Code(s): N18.31 - Chronic kidney disease, stage 3a Category: Medical (2) Essential hypertension: Code(s): I10 - Essential (primary) hypertension Category: Medical Plan Eben has CKD stage 3 and hypertension. His renal functions have been stable. He does not take any creatinine supplements now. He has no proteinuria. Extensive workup done but short of renal biopsy did not reveal any etiology. His blood pressure is at goal. It is likely that he has suffered a renal insult in the past which has dropped his GFR. If his serum creatinine rises I will consider doing a renal biopsy. HIs 24 hour urine collection for creatinine clearance was reassuring. He maintains good hydration. He avoids nonsteroidal anti-inflammatories. He may be a candidate for SGLT2 i. I did not make any medication changes at this visit. Answered all questions. Follow-up appointment given Orders: Orders Creatinine 6 Months N18.31 - Chronic kidney disease, stage 3a Electrolytes 6 Months N18.31 - Chronic kidney disease, stage 3a Blood Urea Nitrogen 6 Months N18.31 - Chronic kidney disease, stage 3a Coding Level of Care Code Est Pt Level 4 (00339) Diagnoses CKD stage 3a, GFR 45-59 ml/min N18.31 Essential hypertension I10
[2024-07-24 11:12] VITALS: BP 130/80; PULSE 47; O2SAT 98; BMI 29.7
--- OUTSIDE RECORDS SUMMARY | 2024-07-24 12:51 | XMS_ITS | Clinical Summary ---
Author Organization [facility] Address [address] [place] [address] Phone Care Team Providers Care Real Estate Professor Name Role Phone Parviz Aguero MD Primary [...] Health Maintenance Due Date Last Done Comments Hepatitis B Vaccine (1 of 3 - 19+ 3-dose series) 01/19 Pneumococcal Vaccine: 50+ Years (1 of 2 - PCV) 986 Colorectal Cancer Screening: Annual FOBT 01/20/2016 Colorectal Cancer Screening: Colonoscopy 01/20/2016 Colorectal Cancer Screening: Sigmoidoscopy 01/20/2016 Influenza Vaccine (Season Ended) 2024 Insurance ([id number]) PATRICIA SALCIDO [id number] [facility] ([id number]) PATRICIA SALCIDO [phone] Care Teams Real Estate Professor Relationship Specialty Start Date End Date Parviz Aguero MD [address] [address] PCP - General Family Medicine 12/24/20
== END 2024-07-24 11:26 | disposition home or self-care (01) ==
LOC: HO.HKAS 10:39
PROVIDERS: PCP Family Medicine; Visit Provider Internal Medicine Nephrology
DX: N18.31 Chronic kidney disease, stage 3a (principal); I10 Essential (primary) hypertension
CPT/HCPCS: 99214

== ENCOUNTER → 2024-07-24 10:39 | Outpatient (BNVA) | payer OTHER, SELFPAY | PROVIDERS: PCP Family Medicine; Visit Provider Internal Medicine Nephrology | DX: I12.9 Hypertensive chronic kidney disease with stage 1 through stage 4 chronic kidney disease, or unspecified chronic kidney disease (principal); N18.31 Chronic kidney disease, stage 3a | CPT/HCPCS: 99212 ==

== ENCOUNTER 2024-08-21 09:40 | Outpatient (REF) | payer OTHER, SELFPAY ==
--- OUTSIDE RECORDS SUMMARY | 2024-08-21 10:22 | XMS_ITS | Clinical Summary ---
Author Organization [facility] Address [address] [place] [address] Phone Care Team Providers Care Granite Polisher Machine Name Role Phone Parviz Aguero MD Primary [...] (Season Ended) 2024 Insurance ([id number]) PATRICIA SALCIDO [phone] [facility] ([id number]) PATRICIA SALCIDO [id number] Care Teams Granite Polisher Machine Relationship Specialty Start Date End Date Parviz Aguero MD [address] [address] PCP - General Family Medicine 12/24/20
[2024-08-21 12:24] LABS: Alanine Aminotransferase 41 U/L (0-40); Albumin Level 4.4 g/dL (3.5-5.0); Anion Gap 14 (12-20); Aspartate Amino Transferase 46 U/L (5-37); Bilirubin Total 0.7 mg/dL (0.0-1.0); Blood Urea Nitrogen 26 mg/dL (9-16); Carbon Dioxide 25 mmol/L (22-29); Chloride 107 mmol/L (96-108); Estimated Glomerular Filt Rate 43; Glucose Random 101 mg/dL (60-115); Potassium 4.6 mmol/L (3.3-5.1); Sodium 141 mmol/L (135-145); Total Protein 7.4 g/dL (6.5-8.0)
[2024-08-21 12:34] LABS: Alkaline Phosphatase 69 U/L (39-117)
[2024-08-21 12:34] LABS: Creatinine Urine 144.01 mg/dL; Microalbumin Urine < 5.0 mg/L
== END 2024-08-21 09:41 | disposition home or self-care (01) ==
LOC: HO.WFDLDS 09:40
PROVIDERS: Visit Provider Family Medicine
DX: N18.31 Chronic kidney disease, stage 3a (principal); I10 Essential (primary) hypertension
CPT/HCPCS: 36415; 80053; 82043; 82570

== ENCOUNTER 2024-08-28 10:31 | Outpatient (AMB) | payer OTHER, SELFPAY ==
--- NOTE | 2024-08-28 10:34 | MHC.PC.OV ---
Vital Signs 08/28/24 10:38 Height 6 ft 1 in Weight 222 lb 4 oz BMI 29.3 BP 138/80 Blood Pressure Location Lt brachial Position Sitting Respiration 14 Pulse 66 Pulse Source Pulse Oximeter Temp 97.6 F Temp Source Oral Pulse Oximetry (%) 97 Oxygen Delivery Method Room Air Intake Visit Reasons: f/u HTN, CRF Intake Note: patient is scheduled for htn and crf patient also states he started to experience slight chest pain when working out but has went away but then is returning but not as painful as the first time. pain is located on left upper chest/shoulder area. Bioinformatician Required: No Allergies Seasonal Allergies Allergy (Mild, Verified 08/28/24 10:36) Sneezing Medication List - Last Reconciled 08/28/24 by Parviz Aguero MD allopurinol 200 mg (2 x 100 mg) PO DAILY amlodipine 10 mg PO DAILY 90 days aripiprazole 5 mg PO DAILY atorvastatin 20 mg PO BEDTIME azelastine 1 spray intranasal BID blood pressure monitor Automatic, Digital. Dx: I10. Daily As directed, 999 days/lifetime cetirizine 10 mg PO DAILY cyclobenzaprine 10 mg PO TID PRN diclofenac sodium 1% 2 grams topical QID 30 days fluocinonide 0.05% appl topical DAILY PRN fluticasone propionate 50 mcg/actuation 1 spray intranasal DAILY lisinopril 5 mg PO DAILY 90 days melatonin mg PO BEDTIME metoprolol succinate ER 50 mg PO DAILY 30 days quetiapine ER 600 mg PO BEDTIME vilazodone 40 mg PO QAM Tobacco use date assessed: 10/06/23 Dental Screening Dental Screen Date: 10/06/23 HPI f/u HTN, CRF HPI Details 59 y/o male presents to f/u HTN, CRF. Blood pressure today 138/80, 66p. He is on lisinopril 5mg, metoprolol 50mg, amlodipine 10mg dialy. Labs drawn 08/21/24. Reviewed labs with pt. Creatinine 1.65 mg/dL. Elevated liver enzymes - AST 46, ALT 41. Pt reports L sided chest pain. Pt notes he does get dizzy at times. HPI Comments History of Present Illness Details Documentation assistance for Parviz Aguero MD, was provided by Virgilio Munoz,? Conditioning Machine Operator on 08/28/2024 at 11:17 AM EST. I, Dr. Aguero, have read, observed, and verified documentation. PFSH Family History Other Mental health disorder Social History Housing: Apartment Alcohol intake: current Patient Tobacco Use Status: Never used Tobacco e-Cigarette/Vaping Use: Never Used Second Hand Smoke Exposure: No service: No Current occupational status: disabled Current occupational exposures/hazards: No Cognitive needs: No Hearing needs: No Vision needs: No Questionnaire Thrive Questionnaire Date Thrive assessed: 05/24/24 I am a: Patient What is your living situation today?: I have a steady place to live Within the past 12 months, did the food you bought not last and you didn't have the money to get more?: Never true Within the past 12 months, did you worry whether your food would run out before you got money to buy more?: Sometimes True Do you have trouble paying for medicines?: No Do you have trouble getting transportation to medical appointments?: No Do you have trouble paying your heating and electricity bill?: No Do you have trouble taking care of your child, family member or friend?: No Do you have trouble with day-to-day activities such as bathing, preparing meals, shopping, managing finances, etc.?: No Are you currently unemployed and looking for a job?: No Are you interested in more education?: No Please select the resources that you would like help with: None Currently or been in a relationship where the following occur: I choose not to answer THRIVE Score: 1 AUDIT C Alcohol Use Questionnaire (AUDIT-C) 2. How many drinks containing alcohol do you have on a typical day when you are drinking?: 1 or 2 Total Score: 0 DIANE-7 AMB Questionnaire DIANE-7 Date DIANE - 7 assessed: 01/27/22 Source: Developed by Drs. Rafal Conway, Gabby Roberts, Gerry Vogt and colleagues, with an educational isabelle from [employer]. Review of Systems Const Denies chills, Denies fatigue, Denies fever(s), Denies headache(s) and Denies weakness ENT Denies dizziness and Denies headache(s) Card Reports chest pain and Denies dyspnea Resp Denies cough, Denies dyspnea, Denies wheezing and Denies other (shortness of breath) Musc Denies numbness and Denies tingling Neuro Denies dizziness, Denies headache(s), Denies numbness, Denies tingling and Denies weakness Psych Denies anxiety and Denies depression Endo Denies fatigue Aller/Immun Denies wheezing Physical exam (Primary Care) Vital Signs: Last Vital Signs Temp 97.6 F 08/28/24 10:38 Pulse 66 08/28/24 10:38 Resp 14 08/28/24 10:38 BP 138/80 08/28/24 10:38 Pulse Ox 97 08/28/24 10:38 Oxygen Delivery Method Room Air 08/28/24 10:38 BMI result Body Mass Index 29.3 Tobacco/Smoking Status: Tobacco use Status Tobacco use date assessed 10/06/23 08/28/24 10:35 Patient Tobacco Use Status Never used Tobacco 08/28/24 10:35 e-Cigarette/Vaping Use Never Used 08/28/24 10:35 Thrive Assessment: Date of Thrive Assessment Date Thrive assessed 05/24/24 08/28/24 10:35 Currently or been in a relationship where the following occur: I choose not to answer Const General: well developed; No acute distress Nutritional Appearance: well nourished Orientation/consciousness: patient oriented x3 [facility] Head: Yes normocephalic and Yes atraumatic Eyes General: appearance normal, both eyes and all related structures Pupils: Equal, round and reactive pupils present EOM: EOMs intact bilaterally Resp Effort & Inspection: normal respiratory effort Auscultation: clear to auscultation bilaterally Cardio Rate: regular rate Rhythm: regular rhythm Heart sounds: S1 normal heart sound present, S2 normal heart sound present, no gallops, no murmurs and no rubs Neuro General: patient oriented x3 and gait normal Cranial nerves: Yes Equal, round and reactive pupils present Psych Affect: normal affect Coding Level of Care Code Est Pt Level 5 (22720) Diagnoses Essential hypertension I10 Chronic renal failure N18.9 Elevated liver enzymes R74.8 Chest pain R07.9 Assessment & Plan Assessment & Plan (1) Essential hypertension: Code(s): I10 - Essential (primary) hypertension Category: Medical Plan: Blood?pressure?is?controlled.??Goal?is?less?than?140/90 Continue?current?medications (2) Chronic renal failure: Code(s): N18.9 - Chronic kidney disease, unspecified Category: Medical Plan: Creatinine?at?baseline Recent?visit?with?Nephrology?and?all?feels?he?is?stable Follow-up?with?nephrology?as?recommended (3) Elevated liver enzymes: Code(s): R74.8 - Abnormal levels of other serum enzymes Category: Medical Plan: Recheck?liver?enzymes (4) Chest pain: Code(s): R07.9 - Chest pain, unspecified Category: Medical Plan: Left-sided?chest Pain?which?is?nonreproducible. EKG?shows?marked?sinus?bradycardia?with?heart?rate?41?be?p.m..??Normal?axis,?no?hypertrophy,?no?ST-T-wave?changes. However,?patient?notes?that?he?is?a?little?more?dizzy?lately. Will?send?patient?for?stress?test?and?echocardiogram Referred?to?cardiology Will Also Check CXR & Labs Advised?him?to?avoid?exertion?and?follow-up?with?Cardiology If?he?has?increasing?chest?pain?or?other?concerning?symptoms,?go?to?the?ED Orders: Orders CA stress test Today R07.9 - Chest pain, unspecified XR chest 2V Today R07.9 - Chest pain, unspecified Troponin-I High Sensitivity Today R07.9 - Chest pain, unspecified AMB EKG-In Office Today R07.9 - Chest pain, unspecified Comprehensive [place]. Panel Fast Today R74.8 - Abnormal levels of other serum enzymes, Z00.00 - Encounter for general adult medical examination without abnormal findings CA echo transthoracic complete Today R07.9 - Chest pain, unspecified Complete Blood Count Auto Diff Today R07.9 - Chest pain, unspecified, Z00.00 - Encounter for general adult medical examination without abnormal findings Referrals Cardiology Referral R00.1 - Bradycardia, unspecified, R07.9 - Chest pain, unspecified
[2024-08-28 10:38] VITALS: BP 138/80; PULSE 66; RESP 14; TEMP 36.4; O2SAT 97; BMI 29.3
--- OUTSIDE RECORDS SUMMARY | 2024-08-28 11:49 | XMS_ITS | Clinical Summary ---
Author Organization [facility] Address [address] [place] [address] Phone Care Team Providers Care Partner Alliance Manager Name Role Phone Parviz Aguero MD Primary Care Provider [phone] Allergies No known active allergies Medications allopurinol [...] (Season Ended) 2024 Insurance ([id number]) PATRICIA SALCIDO [id number] [facility] ([id number]) [place] SALCIDO [id number] Care Teams Partner Alliance Manager Relationship Specialty Start Date End Date Parviz Aguero MD [address] [address] PCP - General Family Medicine 12/24/20
== END 2024-08-28 11:16 | disposition home or self-care (01) ==
LOC: HO.HMCFM 10:31
PROVIDERS: PCP Family Medicine; Visit Provider Family Medicine
DX: I12.9 Hypertensive chronic kidney disease with stage 1 through stage 4 chronic kidney disease, or unspecified chronic kidney disease (principal); N18.9 Chronic kidney disease, unspecified; R74.8 Abnormal levels of other serum enzymes; R07.9 Chest pain, unspecified

== ENCOUNTER → 2024-08-28 10:31 | Outpatient (BNVA) | payer OTHER, SELFPAY | PROVIDERS: PCP Family Medicine; Visit Provider Family Medicine | DX: I12.9 Hypertensive chronic kidney disease with stage 1 through stage 4 chronic kidney disease, or unspecified chronic kidney disease (principal); N18.9 Chronic kidney disease, unspecified; R07.9 Chest pain, unspecified; R74.8 Abnormal levels of other serum enzymes; R00.1 Bradycardia, unspecified | CPT/HCPCS: 93005; 99212 ==

== ENCOUNTER 2024-09-10 10:29 | Outpatient (REF) | payer OTHER, SELFPAY ==
--- NOTE | ~2024-09-10 | XR_ITS ---
EXAMINATION: XR CHEST 2 VIEWS HISTORY: R07.9 - Chest pain, unspecified COMPARISON: There are no prior studies available for comparison. FINDINGS: PA and lateral views of the chest are submitted. The lungs are expanded and clear. There is no pleural effusion, pneumothorax, or pulmonary vascular congestion. The heart is normal in size. There is degenerative disc disease of the spine. XR/XR chest 2V IMPRESSION: No acute cardiopulmonary abnormality. Electronically signed by: Rafal Jo MD 09/10/2024 12:24 PM EDT
--- OUTSIDE RECORDS SUMMARY | 2024-09-10 11:35 | XMS_ITS | Clinical Summary ---
Author Organization [facility] Address [address] [place] [address] Phone Care Team Providers Care Turn Laster Name Role Phone Praviz Aguero MD Primary Care Provider Allergies No [...] (Season Ended) 2024 Insurance ([id number]) PATRICIA SALCIDO [id number] [facility] ([id number]) PATRICIA SALCIDO [id number] Care Teams Turn Laster Relationship Specialty Start Date End Date Parviz Aguero MD [address] [address] PCP - General Family Medicine 12/24/20
== END 2024-09-10 10:30 | disposition home or self-care (01) ==
LOC: HO.XRAY 10:29
PROVIDERS: PCP Family Medicine; Visit Provider Family Medicine
DX: R07.9 Chest pain, unspecified (principal)
CPT/HCPCS: 71046

== ENCOUNTER → 2024-09-10 10:32 | Outpatient (BNV) | payer OTHER, SELFPAY | PROVIDERS: PCP Family Medicine; Visit Provider Radiology Diagnostic Radiology | DX: R07.9 Chest pain, unspecified (principal) | CPT/HCPCS: 71046 ==

== ENCOUNTER → 2024-10-29 08:28 | Outpatient (REF) | payer OTHER, SELFPAY ==
--- OUTSIDE RECORDS SUMMARY | 2024-10-29 08:38 | XMS_ITS | Clinical Summary ---
Author Organization [facility] Address [address] [place] [address] Phone Care Team Providers Care Filter Operator Name Role Phone Parviz Aguero MD Primary [...] Cancer Screening: Sigmoidoscopy 01/20/2016 Influenza Vaccine (#1) 2024 Insurance ([id number]) PATR[place]IA SALCIDO [id number] [facility] ([id number]) [place] SALCIDO [id number] Care Teams Filter Operator Relationship Specialty Start Date End Date Parviz Aguero MD [address] [address] PCP - General Family Medicine 12/24/20
--- NOTE | 2024-10-29 08:45 | CA_ITS ---
Acquisition Time: 2024-10-29 10:05:44 Total Exercise Time: 00:07:16 Test Indications: CHEST PAIN Medications: ALLOPURINOL AMLODIPINE ATORVASTATIN LISINOPRIL Protocol: EPTR Max HR: 142 BPM 87% of Pred: 163 BPM Max BP: 140/82 mmHG Max Work Load: 8.9 METS Exercise stress test with exercise 7 mins 16 secs of Petr Protocol, achieving 87% MPHR, with reports of mild SOB, with frequent PVCs and ventricular couplets, with normotensive response to exercise. Without any EKG changes meeting criteria for ischemia. In recovery, breathing quickly improved to baseline. Test reviewed with Dr. Ghotra. Referred By: Parviz Aguero Electronically Signed By: Bj Jeffries
--- NOTE | 2024-10-29 08:45 | CA_ITS ---
Transthoracic Echocardiogram Patient (Last, First, Middle): Eben Mendoza, Gender: Male Date of : 1965 Age: 59 Procedure Date: 10/29/2024 Procedure Type: Transthoracic Echocardiogram Location: OP Height: 185.42 cm Weight: 98.43 kg BSA: 2.23 m2 Heart Rate: 46 bpm BP: 108 / 64 mmHg Air Hose Coupler: SB Referring MD: Parviz Aguero MD Symptoms: R07.9 - Chest pain, unspecified Study Quality: Adequate ECG Rhythm: Sinus bradycardia Conclusions: - The left ventricular systolic function is normal. The calculated ejection fraction is 60% by biplane method. - Moderately increased right ventricular cavity size. - No obvious valvular pathology seen on this study. Findings Left Ventricle Normal left ventricular cavity size. There is normal left ventricular wall thickness. The left ventricular systolic function is normal. The calculated ejection fraction is 60% by biplane method. There is no evidence of regional wall motion abnormalities. Diastolic function is normal for age. Right Ventricle Moderately increased right ventricular cavity size. There is normal right ventricular systolic function. Atria Both atria are normal in size. Aortic Valve There is a normal trileaflet aortic valve. There is no aortic valve stenosis. There is no aortic valve regurgitation. Mitral Valve The mitral valve appears normal. There is trace mitral valve regurgitation. There is no mitral valve stenosis. Pulmonic Valve The pulmonic valve is likely normal. Tricuspid Valve Normal tricuspid valve structure. There is mild tricuspid valve regurgitation. There is no evidence of pulmonary hypertension. Great Vessels The asc aorta and aortic arch are normal in size. Venous The inferior vena cava was not well visualized. Pericardium/Pleural There is no evidence of pericardial effusion. Prior Study Comparison No prior study available for comparison. Recommendations, Care & Conclusions No obvious valvular pathology seen on this study. Measurements 2D Linear Measurements IVSd: 1.07 0.6-0.9/0.6-1.0 cm LVIDd: 6.11 3.9-5.3/4.2-5.9 cm LVIDd Index: 2.74 2.4-3.2/2.2-3.1 cm/m2 LVIDs: 3.99 2.0-3.6 cm LVPWd: 0.58 0.7-1.1 cm LA Diam: 4.50 2.7-3.8/3.0-4.0 cm LAIDs Index: 2.02 1.5-2.3 cm/m2 LV Mass: 249.13 67-162/88-224 g LV Mass Index: 111.72 43-95/49-115 g/m2 LVOT Diam: 2.30 3.0+(-)1.3 cm 2D Systolic Function EF 4C: 53.90 >55% EF 2C: 66.50 >55% EF BiP: 60.10 >55% Mitral Valve MV Pk E: 0.88 MV PK A: 0.56 MV Decel Time: 230.00 E/A: 1.60 E'Lateral: 9.14 E'Medial: 5.87 E/E' Med: 15.00 E/E' Lat: 9.70 PHT: 67.00 MVA PHT: 3.28 Decel [place]: 3.83 Aortic Valve AoV Pk Arden: 1.39 AoV Pk Grad: 8.00 DOUG: 3.22 LVOT LVOT Pk Arden: 1.10 LVOT Mn Arden: 0.82 LVOT VTI: 0.28 LVOT Pk Grad: 5.00 LVOT Mn Grad: 3.00 LVOT Diam: 2.30 LVOT Area: 4.15 Diastolic Function MV Pk E: 0.88 MV Pk A: 0.56 E/A: 1.60 E'Medial: 5.87 E/E' Med: 15.00 E' Laterial: 9.14 E/E' Lat: 9.70 Right Ventricle TAPSE (mm): 32.00 TVS' Arden: 18.40 Tricuspid Valve TR Pk Arden: 2.54 TR Pk Grad: 26.00 RA Press: 3.00 RVSP: 29.00 Great Vessels Aorta Sinus of Valsalva: 3.40 2.0-3.5 cm Ao Asc: 3.80 2.1-3.4 cm Ao Arch: 3.20 Pulmonary Veins Pulm Vein S/D 0.80 Pulmonary Valve PV Pk Arden: 1.03 Peak PV Grad: 4.00 Updated in Other Vendor System with Status of Final Denilson Latif MD electronically signed on 10/29/2024 12:05:43 PM with status of Final
== END ==
LOC: HO.CARD 08:28
PROVIDERS: PCP Family Medicine; Visit Provider Family Medicine
DX: R07.9 Chest pain, unspecified (principal)
CPT/HCPCS: 93017; 93306

== ENCOUNTER → 2024-10-29 08:45 | Outpatient (BNV) | payer OTHER, SELFPAY | PROVIDERS: PCP Family Medicine; Visit Provider Internal Medicine | DX: R06.02 Shortness of breath (principal); I36.1 Nonrheumatic tricuspid (valve) insufficiency; I49.3 Ventricular premature depolarization | CPT/HCPCS: 93016; 93018; 93320; 93325; 93350 ==

== ENCOUNTER 2024-11-06 09:01 | Outpatient (REF) | payer OTHER, SELFPAY ==
--- OUTSIDE RECORDS SUMMARY | 2024-11-06 09:24 | XMS_ITS | Clinical Summary ---
Author Organization [facility] Address [address] [place] [address] Phone Care Team Providers Care Emissions Testing Technician Name Role Phone Parviz Aguero MD Primary [...] Vaccine (#1) 2024 Insurance ([id number]) PATRICIA SALCIDO [id number] [facility] ([id number]) PATR[place] SALCIDO [id number] Care Teams Emissions Testing Technician Relationship Specialty Start Date End Date Parviz Aguero MD [address] [address] PCP - General Family Medicine 12/24/20
[2024-11-06 11:16] LABS: MANUAL DIFF FLAG NO
[2024-11-06 11:28] LABS: Hematocrit 41.8 % (42.0-52.0); Hemoglobin 14.4 g/dl (14.0-18.0); Imm Gran Abs Auto 0.02 X10*3/uL (0.00-0.03); Imm Gran Pct Auto 0.4 % (0.0-0.4); Lymphocytes Absolute Auto 1.7 X10*3/uL (1.2-4.9); Mean Corpuscular HGB Conc 34.4 g/dl (31.0-36.0); Mean Corpuscular Hemoglobin 29.6 pg (27.0-33.0); Mean Corpuscular Volume 86.0 fL (80.0-98.0); NRBC Abs Auto 0.000 X10*3/uL (0.0-0.012); NRBC Pct Auto 0.0 /100WBC (0.0-0.2); Platelet Count 206 X10*3/uL (160-400); Red Blood Count 4.86 X10*6/uL (4.60-5.80); White Blood Count 4.8 X10*3/uL (4.8-10.8)
[2024-11-06 11:47] LABS: Troponin-I High Sensitivity 15.8 ng/L (<3.5-35.0)
[2024-11-06 11:48] LABS: Alanine Aminotransferase 30 U/L (0-40); Albumin Level 4.6 g/dL (3.5-5.0); Alkaline Phosphatase 78 U/L (39-117); Anion Gap 10 (12-20); Aspartate Amino Transferase 39 U/L (5-37); Blood Urea Nitrogen 26 mg/dL (9-16); Calcium 9.5 mg/dL (8.4-10.2); Carbon Dioxide 24 mmol/L (22-29); Chloride 111 mmol/L (96-108); Estimated Glomerular Filt Rate 47; Potassium 4.1 mmol/L (3.3-5.1); Sodium 141 mmol/L (135-145); Total Protein 7.2 g/dL (6.5-8.0)
== END 2024-11-06 09:02 | disposition home or self-care (01) ==
LOC: HO.WFDLDS 09:01
PROVIDERS: Visit Provider Family Medicine
DX: Z00.00 Encounter for general adult medical examination without abnormal findings (principal); R07.9 Chest pain, unspecified; R74.8 Abnormal levels of other serum enzymes
CPT/HCPCS: 36415; 80053; 84484; 85025

== ENCOUNTER 2024-11-14 09:26 | Outpatient (AMB) | payer OTHER, SELFPAY ==
--- NOTE | 2024-11-14 09:40 | A.OFFPC_ITS ---
Vital Signs 11/14/24 09:46 Height 6 ft 1 in Weight 217 lb 8 oz BMI 28.7 BP 106/68 Blood Pressure Location Rt brachial Position Sitting Respiration 14 Pulse 58 Pulse Source Pulse Oximeter Temp 98.1 F Temp Source Oral Pulse Oximetry (%) 97 Oxygen Delivery Method Room Air Intake Visit Reasons: f/u chest pain, labs Intake Note: patient is scheduled for lab review pt states he is no longer having chest pain [place] [employer] Manager Required: No Allergies Seasonal Allergies Allergy (Mild, Verified 11/14/24 09:45) Sneezing Medication List - Last Reconciled 11/14/24 by Parviz Aguero MD allopurinol 200 mg (2 x 100 mg) PO DAILY amlodipine 10 mg PO DAILY 90 days aripiprazole 5 mg PO DAILY atorvastatin 20 mg PO BEDTIME azelastine 1 spray intranasal BID blood pressure monitor Automatic, Digital. Dx: I10. Daily As directed, 999 days/lifetime cetirizine 10 mg PO DAILY cyclobenzaprine 10 mg PO TID PRN diclofenac sodium 1% 2 grams topical QID 30 days fluocinonide 0.05% appl topical DAILY PRN fluticasone propionate 50 mcg/actuation 1 spray intranasal DAILY lisinopril 5 mg PO DAILY 90 days melatonin mg PO BEDTIME metoprolol succinate ER 50 mg PO DAILY 30 days quetiapine ER 600 mg PO BEDTIME vilazodone 40 mg PO QAM Tobacco use date assessed: 10/06/23 Dental Screening Dental Screen Date: 10/06/23 HPI f/u chest pain, labs HPI Details 59 y/o male presents to f/u chest pain, labs. Had complaints of L-sided chest pain. Pain was nonreproducible. EKG had shown marked sinus bradycardia with heart rate 41 be p.m.. Normal axis, no hypertrophy, no ST-T-wave changes. Echocardiogram 10/29/24 showed no obvious valvular pathology. Stress test 10/29/24 showed: Exercise stress test with exercise 7 mins 16 secs of Tarik Protocol, achieving 87% MPHR, with reports of mild SOB, with frequent PVCs and ventricular couplets, with normotensive response to exercise. Without any EKG changes meeting criteria for ischemia. In recovery, breathing quickly improved to baseline. Test reviewed with Dr. Ghotra. Blood pressure today 106/68, 58p. He is on lisinopril 5mg, metoprolol 50mg daily. He is also on amlodipine 10mg daily. Pt notes chest pain has mostly resolved. Pt notes he lifts weight for exercise 3x a week. Also does yard work for exercise. HPI Comments History of Present Illness Details Documentation assistance for Parviz Aguero MD, was provided by Virgilio Munoz,? Manager Gyn on 11/14/2024 at 10:16 AM EST. I, Dr. Aguero, have read, observed, and verified documentation. PFSH Family History Other Mental health disorder Social History Housing: Apartment Alcohol intake: current Patient Tobacco Use Status: Never used Tobacco e-Cigarette/Vaping Use: Never Used Second Hand Smoke Exposure: No service: No Current occupational status: disabled Current occupational exposures/hazards: No Cognitive needs: No Hearing needs: No Vision needs: No Questionnaire Thrive Questionnaire Date Thrive assessed: 05/24/24 I am a: Patient What is your living situation today?: I have a steady place to live Within the past 12 months, did the food you bought not last and you didn't have the money to get more?: Never true Within the past 12 months, did you worry whether your food would run out before you got money to buy more?: Sometimes True Do you have trouble paying for medicines?: No Do you have trouble getting transportation to medical appointments?: No Do you have trouble paying your heating and electricity bill?: No Do you have trouble taking care of your child, family member or friend?: No Do you have trouble with day-to-day activities such as bathing, preparing meals, shopping, managing finances, etc.?: No Are you currently unemployed and looking for a job?: No Are you interested in more education?: No Please select the resources that you would like help with: None Currently or been in a relationship where the following occur: I choose not to answer THRIVE Score: 1 DIANE-7 AMB Questionnaire DIANE-7 Date DIANE - 7 assessed: 01/27/22 Source: Developed by Drs. Rafal Conway, Gabby Roberts, Gerry Vogt and colleagues, with an educational isabelle from [employer]. Review of Systems Const Denies chills, Denies fatigue, Denies fever(s), Denies headache(s) and Denies weakness ENT Denies dizziness and Denies headache(s) Card Denies dyspnea Resp Denies cough, Denies dyspnea, Denies wheezing and Denies other (shortness of breath) Musc Denies numbness and Denies tingling Neuro Denies dizziness, Denies headache(s), Denies numbness, Denies tingling and Denies weakness Psych Denies anxiety and Denies depression Endo Denies fatigue Aller/Immun Denies wheezing Physical exam (Primary Care) Vital Signs: Last Vital Signs Temp 98.1 F 11/14/24 09:46 Pulse 58 11/14/24 09:46 Resp 14 11/14/24 09:46 BP 106/68 11/14/24 09:46 Pulse Ox 97 11/14/24 09:46 Oxygen Delivery Method Room Air 11/14/24 09:46 BMI result Body Mass Index 28.7 Tobacco/Smoking Status: Tobacco use Status Tobacco use date assessed 10/06/23 11/14/24 09:41 Patient Tobacco Use Status Never used Tobacco 11/14/24 09:41 e-Cigarette/Vaping Use Never Used 11/14/24 09:41 Thrive Assessment: Date of Thrive Assessment Date Thrive assessed 05/24/24 11/14/24 09:41 Currently or been in a relationship where the following occur: I choose not to answer Const General: well developed; No acute distress Nutritional Appearance: well nourished Orientation/consciousness: patient oriented x3 HENMT Head: Yes normocephalic and Yes atraumatic Eyes General: appearance normal, both eyes and all related structures Pupils: Equal, round and reactive pupils present EOM: EOMs intact bilaterally Resp Effort & Inspection: normal respiratory effort Auscultation: clear to auscultation bilaterally Cardio Rate: regular rate Rhythm: regular rhythm Heart sounds: S1 normal heart sound present, S2 normal heart sound present, no gallops, no murmurs and no rubs Neuro General: patient oriented x3 and gait normal Cranial nerves: Yes Equal, round and reactive pupils present Psych Affect: normal affect Coding Level of Care Code Est Pt Level 4 (71506) Diagnoses Chest pain R07.9 Bradycardia R00.1 Essential hypertension I10 Elevated liver enzymes R74.8 Assessment & Plan Assessment & Plan (1) Chest pain: Code(s): R07.9 - Chest pain, unspecified Category: Medical Plan: Chest pain has resolved. Stress test did not show ischemia or infarction Echocardiogram showed normal ejection fraction and wall motion. Mildly enlarged RV volume - may be secondary to an athletic heart. Patient has upcoming appointment with cardiology and will keep this. (2) Bradycardia: Code(s): R00.1 - Bradycardia, unspecified Category: Medical Plan: Likely secondary to athletic heart and metoprolol. (3) Essential hypertension: Code(s): I10 - Essential (primary) hypertension Category: Medical Plan: Blood pressure is controlled. Continue current medication regimen (4) Elevated liver enzymes: Code(s): R74.8 - Abnormal levels of other serum enzymes Category: Medical Plan: Mildly elevated liver enzymes and he was advised to hydrate well and maintain good weight control Liver enzymes improved and nearly back to range Continue good hydration Will recheck with next blood draw Orders: Orders Comprehensive [place]. Panel Fast Today Z00.00 - Encounter for general adult medical examination without abnormal findings
[2024-11-14 09:46] VITALS: BP 106/68; PULSE 58; RESP 14; TEMP 36.7; O2SAT 97; BMI 28.7
--- OUTSIDE RECORDS SUMMARY | 2024-11-14 09:50 | XMS_ITS | Clinical Summary ---
Author Organization [facility] Address [address] [place] [address] Phone Care Team Providers Care Career Services Assistant Name Role Phone Parviz Aguero MD Primary Care Provider [phone] Allergies No known active allergies Medications allopurinol [...] Vaccine (#1) 2024 Insurance ([id number]) PATRICIA SALCIDO [id number] ([id number]) PATR[place]IA SALCIDO [id number] Care Teams Career Services Assistant Relationship Specialty Start Date End Date Parviz Aguero MD [address] [address] PCP - General Family Medicine 12/24/20
== END 2024-11-14 10:21 | disposition home or self-care (01) ==
LOC: HO.HMCFM 09:27
PROVIDERS: PCP Family Medicine; Visit Provider Family Medicine
DX: R07.9 Chest pain, unspecified (principal); R00.1 Bradycardia, unspecified; I10 Essential (primary) hypertension; R74.8 Abnormal levels of other serum enzymes

== ENCOUNTER → 2024-11-14 09:26 | Outpatient (BNVA) | payer OTHER, SELFPAY | PROVIDERS: PCP Family Medicine; Visit Provider Family Medicine | DX: I10 Essential (primary) hypertension (principal); R07.9 Chest pain, unspecified; R00.1 Bradycardia, unspecified; R74.8 Abnormal levels of other serum enzymes | CPT/HCPCS: 99212 ==

== ENCOUNTER 2025-01-15 10:08 | Outpatient (REF) | payer OTHER, SELFPAY ==
--- OUTSIDE RECORDS SUMMARY | 2025-01-15 11:59 | XMS_ITS | Clinical Summary ---
Author Organization [facility] Address [address] [place] [address] Phone Care Team Providers Care Vegetable I Farmworker Name Role Phone Parviz Aguero MD Primary [...] Vaccine (#1) 2024 Insurance ([id number]) PATRICIA SALCIDO [id number] ([id number]) PATR[place] SALCIDO [id number] Care Teams Vegetable I Farmworker Relationship Specialty Start Date End Date Parviz Aguero MD [address] [address] PCP - General Family Medicine 12/24/20
[2025-01-15 12:19] LABS: Alanine Aminotransferase 27 U/L (0-40); Albumin Level 4.4 g/dL (3.5-5.0); Alkaline Phosphatase 71 U/L (39-117); Anion Gap 11 (12-20); Aspartate Amino Transferase 39 U/L (5-37); Blood Urea Nitrogen 25 mg/dL (9-16); Calcium 9.3 mg/dL (8.4-10.2); Carbon Dioxide 26 mmol/L (22-29); Chloride 108 mmol/L (96-108); Estimated Glomerular Filt Rate 50; Potassium 4.0 mmol/L (3.3-5.1); Sodium 141 mmol/L (135-145); Total Protein 7.2 g/dL (6.5-8.0)
== END 2025-01-15 10:09 | disposition home or self-care (01) ==
LOC: HO.WFDLDS 10:08
PROVIDERS: Referring Provider Internal Medicine Nephrology; Visit Provider Family Medicine
DX: Z00.00 Encounter for general adult medical examination without abnormal findings (principal)
CPT/HCPCS: 36415; 80053

== ENCOUNTER 2025-01-22 10:43 | Outpatient (AMB) | payer OTHER, SELFPAY ==
--- NOTE | 2025-01-22 10:48 | HO.NEPHOV_ITS ---
Vital Signs 01/22/25 10:49 Height 6 ft 1 in Weight 221 lb 6 oz BMI 29.2 BP 120/70 Blood Pressure Location Lt brachial Position Sitting Pulse 48 L Pulse Source Pulse Oximeter Pulse Oximetry (%) 98 Oxygen Delivery Method Room Air Intake Visit Reasons: 6mon follow-up w/labs Sandblaster Paint Sprayer Required: No Accompanied by: Self / Same As Patient Allergies Seasonal Allergies Allergy (Mild, Verified 01/22/25 10:49) Sneezing HPI Comments Details: Eben was seen in follow-up for his chronic kidney disease and hypertension. He denies taking any creatinine. He does not have any chest pain, shortness of breath, paroxysmal nocturnal dyspnea, orthopnea, pedal edema or urinary sympto ms. His blood pressure has been at goal. He does not take any excessive nonsteroidal anti-inflammatories. He has no new systemic complaints. His serum creatinine had been stable. [facility] Family History Other Mental health disorder Social History Housing: Apartment Alcohol intake: current Patient Tobacco Use Status: Never used Tobacco e-Cigarette/Vaping Use: Never Used Second Hand Smoke Exposure: No service: No Current occupational status: disabled Current occupational exposures/hazards: No Cognitive needs: No Hearing needs: No Vision needs: No Review of Systems Const All systems reviewed & are unremarkable except as noted in HPI and below Physical Exam Vital Signs: Last Vital Signs Pulse 48 L 01/22/25 10:49 BP 120/70 01/22/25 10:49 Pulse Ox 98 01/22/25 10:49 Oxygen Delivery Method Room Air 01/22/25 10:49 BMI result Body Mass Index 29.2 Const General: comfortable and no acute distress Orientation/consciousness: patient oriented x3 HEENT Head: Yes normocephalic Mouth: Normal oral and palatal mucosa present Eyes EOM: EOMs intact bilaterally Neck Neck: Yes supple Resp Auscultation: clear to auscultation bilaterally Cardio Jugular venous distension: no JVD Rate: regular rate GI Palpation (GI): Soft to palpation Auscultation: normal bowel sounds General: Yes no CVA tenderness Back/Spine/Pelvis Back: no CVA tenderness Skin General skin exam: no rashes or lesions noted Neuro General: patient oriented x3 and moves all extremities Extrem General: Yes no pedal edema Results Reviewed Nephrology Results: Hgb, (14.0-18.0) 14.4 g/dl 11/06/24 WBC, (4.8-10.8) 4.8 X10*3/uL 11/06/24 Plt Count, (160-400) 206 X10*3/uL 11/06/24 Sodium, (135-145) 141 mmol/L 01/15/25 Potassium, (3.3-5.1) 4.0 mmol/L 01/15/25 Chloride, (96-108) 108 mmol/L 01/15/25 Carbon Dioxide, (22-29) 26 mmol/L 01/15/25 BUN, (9-16) 25 mg/dL H 01/15/25 Creatinine, (0.5-1.4) 1.46 mg/dL H 01/15/25 Calcium, (8.4-10.2) 9.3 mg/dL 01/15/25 Urine Creatinine 144.01 mg/dL 08/21/24 Assessment & Plan Assessment & Plan (1) Essential hypertension: Code(s): I10 - Essential (primary) hypertension Category: Medical (2) CKD stage 3a, GFR 45-59 ml/min: Code(s): N18.31 - Chronic kidney disease, stage 3a Category: Medical Plan Eben has CKD stage 3 and hypertension. His renal functions have been stable. He does not take any creatinine supplements now. He has no proteinuria. Extensive workup done but short of renal biopsy did not reveal any etiology. His blood pressure is at goal. It is likely that he has suffered a renal insult in the past which has dropped his GFR. If his serum creatinine rises I will consider doing a renal biopsy. HIs 24 hour urine collection for creatinine clearance was reassuring. He maintains good hydration. He avoids nonsteroidal anti-inflammatories. He may be a candidate for SGLT2 i. I did not make any medication changes at this visit. Answered all questions. Follow-up appointment given Orders: Orders Parathyroid Hormone Intact 6 Months I10 - Essential (primary) hypertension, N18.31 - Chronic kidney disease, stage 3a Electrolytes 6 Months I10 - Essential (primary) hypertension, N18.31 - Chronic kidney disease, stage 3a Calcium 6 Months I10 - Essential (primary) hypertension, N18.31 - Chronic kidney disease, stage 3a Blood Urea Nitrogen 6 Months I10 - Essential (primary) hypertension, N18.31 - Chronic kidney disease, stage 3a Protein Creatinine Ratio, Ur 6 Months I10 - Essential (primary) hypertension, N18.31 - Chronic kidney disease, stage 3a Vitamin D 25-OH Total 6 Months I10 - Essential (primary) hypertension, N18.31 - Chronic kidney disease, stage 3a Creatinine 6 Months I10 - Essential (primary) hypertension, N18.31 - Chronic kidney disease, stage 3a Coding Level of Care Code Est Pt Level 4 (49993) Diagnoses Essential hypertension I10 CKD stage 3a, GFR 45-59 ml/min N18.31
[2025-01-22 10:49] VITALS: BP 120/70; PULSE 48; O2SAT 98; BMI 29.2
--- OUTSIDE RECORDS SUMMARY | 2025-01-22 12:39 | XMS_ITS | Clinical Summary ---
Author Organization [facility] Address [address] [place] [address] Phone Care Team Providers Care Milling Machine Tender Name Role Phone Parviz Aguero MD Primary Care Provider [phone] Allergies No known active allergies Medications allopurinol [...] Vaccine (#1) 2024 Insurance ([id number]) PATRICIA SALCIDO [id number] ([id number]) PATRICIA SALCIDO [id number] Care Teams Milling Machine Tender Relationship Specialty Start Date End Date Parviz Aguero MD [address] [address] PCP - General Family Medicine 12/24/20
== END 2025-01-22 11:08 | disposition home or self-care (01) ==
LOC: HO.HKAS 10:43
PROVIDERS: PCP Family Medicine; Visit Provider Internal Medicine Nephrology
DX: I10 Essential (primary) hypertension (principal); N18.31 Chronic kidney disease, stage 3a
CPT/HCPCS: 99214

== ENCOUNTER → 2025-01-22 10:43 | Outpatient (BNVA) | payer OTHER, SELFPAY | PROVIDERS: PCP Family Medicine; Visit Provider Internal Medicine Nephrology | DX: I10 Essential (primary) hypertension (principal); N18.31 Chronic kidney disease, stage 3a | CPT/HCPCS: 99212 ==

== ENCOUNTER 2025-01-31 10:26 | Outpatient (AMB) | payer OTHER, SELFPAY ==
--- NOTE | 2025-01-31 10:45 | A.OFFVIS_ITS ---
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 Dx: I10. Daily As directed, 999 days/lifetime cetirizine 10 mg PO DAILY cyclobenzaprine 10 mg PO TID PRN diclofenac sodium 1% 2 grams topical QID 30 days fluocinonide 0.05% appl topical DAILY PRN fluticasone propionate 50 mcg/actuation 1 spray intranasal DAILY lisinopril 5 mg PO DAILY 90 days melatonin mg PO BEDTIME metoprolol succinate ER 50 mg PO DAILY 30 days quetiapine ER 600 mg PO BEDTIME vilazodone 40 mg PO QAM HPI Comments Details: The patient is a 60-year-old male presenting with concerns of low pulse, chest pain, and fatigue. The patient reports experiencing a low pulse, which was identified by his primary care provider, leading to a referral for further evaluation. He is currently taking metoprolol for hypertension, which is contributing to the bradycardia. The patient describes chest pain occurring primarily during activities like lifting weights. Initial blood work was conducted, and results were normal, but the patient was referred for further evaluation due to persistent symptoms. The patient also experiences dizziness, particularly when transitioning from sitting to standing, and reports general fatigue. No previous cardiac history including coronary disease, myocardial infarction or cardiomyopathy. [facility] Family History (Updated 01/31/25 @ 10:49 by Anand Bethea CNA) Family/Other Heart problem Other Mental health disorder Social History (Updated 01/31/25 @ 10:50 by Anand Bethea CNA) Housing: Apartment Alcohol intake: current Alcohol intake frequency: holidays/special occasions only Alcohol type: beer Patient Tobacco Use Status: Never used Tobacco e-Cigarette/Vaping Use: Never Used Second Hand Smoke Exposure: No service: No Current occupational status: disabled Current occupational exposures/hazards: No Cognitive needs: No Hearing needs: No Vision needs: No Review of Systems Const Denies daytime sleepiness, Denies difficulty sleeping, Denies snoring, Denies stops breathing during sleep and Denies weakness Card Denies chest pain, Denies rapid heart rate, Denies irregular heart rhythm, Denies claudication, Denies leg edema, Denies lightheadedness, Denies palpitations, Denies dyspnea, Denies dyspnea on exertion, Denies orthopnea, Denies paroxysmal nocturnal dyspnea and Denies slow heart rate Resp Denies cough, Denies dyspnea, Denies dyspnea on exertion and Denies snoring GI Reports no additional complaints, Denies hematochezia, Denies change in stool character and Denies dyspepsia Musc Denies abnormal gait, Denies muscle weakness and Denies numbness Neuro Denies abnormal gait, Denies numbness and Denies weakness Endo Denies palpitations Physical Exam Vital Signs: Last Vital Signs Pulse 51 01/31/25 10:46 BP 134/78 01/31/25 10:46 BMI result Body Mass Index 29.0 Const General: comfortable and no acute distress Orientation/consciousness: patient oriented x3 HEENT Other: Unremarkable Head: Yes normal to inspection Neck Neck: Yes normal visual inspection Chest Chest palpation & inspection: normal inspection of the chest Resp Auscultation: clear to auscultation bilaterally Cardio Palpation: normal PMI Heart sounds: S1 normal heart sound present, S2 normal heart sound present, no gallops, no murmurs and no rubs GI Palpation (GI): Soft to palpation Back/Spine/Pelvis Other: unremarkable Skin General skin exam: no rashes or lesions noted Neuro General: patient oriented x3 Extrem General: Yes normal to inspection Psych Mental Status: mental status grossly normal Assessment & Plan Assessment & Plan (1) Bradycardia: Code(s): R00.1 - Bradycardia, unspecified Category: Medical (2) Chest pain: Code(s): R07.9 - Chest pain, unspecified Category: Medical (3) Essential hypertension: Code(s): I10 - Essential (primary) hypertension Category: Medical (4) CKD stage 3a, GFR 45-59 ml/min: Code(s): N18.31 - Chronic kidney disease, stage 3a Category: Medical (5) Fatigue: Code(s): R53.83 - Other fatigue Category: Medical Plan EKG with sinus bradycardia at 41/Min; no ischemic changes; normal DE and corrected QT. In the echocardiogram, LVEF is 60%. No wall motion abnormalities. Increased right ventricular size. Otherwise unremarkable. In the stress test, he could do 8.9 METS on Tarik protocol. Had shortness of breath and PVCs. No EKG evidence of ischemia. Overall, suspect bradycardia most likely related to the metoprolol. As he is describing some nonspecific symptoms like fatigue, we can stop that and monitor blood pressures. With regard to the chest pain, it seems to be happening with activities like lifting weights and hence probably musculoskeletal. We can also repeat a stress test with echocardiographic components to further assess this, and also being off beta-blockers. Plan discussed with patient and he agrees. chuck wagon driver was used. Discussion Notes I discussed with the patient the plan to discontinue metoprolol due to its contribution to bradycardia and the need for a stress test to evaluate cardiac function without the medication's influence. We also talked about the importance of monitoring blood pressure at home and the potential need for adjustments in antihypertensive therapy. Patient was informed and verbally consented to the use of an ambient scribe for clinic note documentation during this visit. Orders: Orders CA echo stress exercise Today R07.2 - Precordial pain Medications: Discontinued metoprolol succinate ER Discontinued Reason: Doctor's Order 50 mg PO DAILY 30 days 30 tabs 4RF I10 - Essential (primary) hypertension Patient Instructions: - Stop taking metoprolol as instructed. - Schedule and attend a stress echocardiogram as planned. - Monitor blood pressure at home regularly. - Follow up in three months or sooner if symptoms worsen. Coding Level of Care Code New Pt Level 4 (61529) Complex EM visit Add On G2211 Diagnoses Bradycardia R00.1 Chest pain R07.9 Essential hypertension I10 CKD stage 3a, GFR 45-59 ml/min N18.31 Fatigue R53.83
[2025-01-31 10:46] VITALS: BP 134/78; PULSE 51; BMI 29.0
--- OUTSIDE RECORDS SUMMARY | 2025-01-31 12:35 | XMS_ITS | Clinical Summary ---
Author Organization [facility] Address [address] [place] [address] Phone Care Team Providers Care Seaman Name Role Phone Parviz Aguero MD Primary [...] Vaccine (#1) 2024 Insurance ([id number]) PATRICIA SALCIDO [phone] ([id number]) PATRICIA SALCIDO [id number] Care Teams Seaman Relationship Specialty Start Date End Date Parviz Aguero MD [address] [address] PCP - General Family Medicine 12/24/20
== END 2025-01-31 11:09 | disposition home or self-care (01) ==
PROVIDERS: PCP Family Medicine; Visit Provider Internal Medicine
DX: R00.1 Bradycardia, unspecified (principal); R07.9 Chest pain, unspecified; I12.9 Hypertensive chronic kidney disease with stage 1 through stage 4 chronic kidney disease, or unspecified chronic kidney disease; N18.31 Chronic kidney disease, stage 3a; R53.83 Other fatigue
CPT/HCPCS: 99214; G2211

== ENCOUNTER → 2025-01-31 10:26 | Outpatient (BNVA) | payer OTHER, SELFPAY | PROVIDERS: PCP Family Medicine; Visit Provider Internal Medicine | DX: N18.31 Chronic kidney disease, stage 3a (principal); I10 Essential (primary) hypertension; R00.1 Bradycardia, unspecified; R07.9 Chest pain, unspecified; R53.83 Other fatigue | CPT/HCPCS: 99212 ==

== ENCOUNTER 2025-02-18 11:24 | Outpatient (AMB) | payer OTHER, SELFPAY ==
--- NOTE | 2025-02-18 11:28 | MHC.PC.OV ---
Vital Signs 02/18/25 11:33 Height 6 ft 1 in Weight 217 lb BMI 28.6 BP 120/66 Blood Pressure Location Rt brachial Position Sitting Respiration 16 Pulse 60 Pulse Source Pulse Oximeter Temp 97.5 F Temp Source Oral Pulse Oximetry (%) 99 Oxygen Delivery Method Room Air Intake Visit Reasons: f/u chest pain, labs Intake Note: patient is scheduled for chest pain and labs. Senior Project Manager Engineering Required: No Allergies Seasonal Allergies Allergy (Mild, Verified 02/18/25 11:31) Sneezing Medication List - Last Reconciled 02/18/25 by Parviz Aguero MD allopurinol 200 mg (2 x 100 mg) PO DAILY amlodipine 10 mg PO DAILY 90 days aripiprazole 5 mg PO DAILY atorvastatin 20 mg PO BEDTIME azelastine 1 spray intranasal BID blood pressure monitor Monitor high blood pressure cetirizine 10 mg PO DAILY cyclobenzaprine 10 mg PO TID PRN diclofenac sodium 1% 2 grams topical QID 30 days fluocinonide 0.05% appl topical DAILY PRN fluticasone propionate 50 mcg/actuation 1 spray intranasal DAILY lisinopril 5 mg PO DAILY 90 days melatonin mg PO BEDTIME quetiapine ER 600 mg PO BEDTIME vilazodone 40 mg PO QAM Tobacco use date assessed: 10/06/23 Dental Screening Dental Screen Date: 10/06/23 HPI f/u chest pain, labs HPI Details 60 y/o male presents to f/u chest pain, labs. Had followed up with Cardiology 01/31/25. They had noted bradycardia most likely related to metoprolol. They note chest pain most likely musculoskeletal. They plan to do repeat stress test to further assess. BP today 120/66, 60p. He is on lisinopril 5mg, amlodipine 10mg daily. [facility] Family History (Updated 01/31/25 @ 10:49 by Anand Bethea CNA) Family/Other Heart problem Other Mental health disorder Social History (Updated 01/31/25 @ 10:50 by Anand Bethea CNA) Housing: Apartment Alcohol intake: current Alcohol intake frequency: holidays/special occasions only Alcohol type: beer Patient Tobacco Use Status: Never used Tobacco e-Cigarette/Vaping Use: Never Used Second Hand Smoke Exposure: No service: No Current occupational status: disabled Current occupational exposures/hazards: No Cognitive needs: No Hearing needs: No Vision needs: No Questionnaire Thrive Questionnaire Date Thrive assessed: 05/24/24 I am a: Patient What is your living situation today?: I have a steady place to live Within the past 12 months, did the food you bought not last and you didn't have the money to get more?: Never true Within the past 12 months, did you worry whether your food would run out before you got money to buy more?: Sometimes True Do you have trouble paying for medicines?: No Do you have trouble getting transportation to medical appointments?: No Do you have trouble paying your heating and electricity bill?: No Do you have trouble taking care of your child, family member or friend?: No Do you have trouble with day-to-day activities such as bathing, preparing meals, shopping, managing finances, etc.?: No Are you currently unemployed and looking for a job?: No Are you interested in more education?: No Please select the resources that you would like help with: None Currently or been in a relationship where the following occur: I choose not to answer THRIVE Score: 1 DIANE-7 AMB Questionnaire DIANE-7 Date DIANE - 7 assessed: 01/27/22 Source: Developed by Drs. Rafal Conway, Gabby Roberts, Gerry Vogt and colleagues, with an educational isabelle from [employer]. Review of Systems Const Denies chills, Denies fatigue, Denies fever(s), Denies headache(s) and Denies weakness ENT Denies dizziness and Denies headache(s) Card Denies dyspnea Resp Denies cough, Denies dyspnea, Denies wheezing and Denies other (shortness of breath) Musc Denies numbness and Denies tingling Neuro Denies dizziness, Denies headache(s), Denies numbness, Denies tingling and Denies weakness Psych Denies anxiety and Denies depression Endo Denies fatigue Aller/Immun Denies wheezing Physical exam (Primary Care) Vital Signs: Last Vital Signs Temp 97.5 F 02/18/25 11:33 Pulse 60 02/18/25 11:33 Resp 16 02/18/25 11:33 BP 120/66 02/18/25 11:33 Pulse Ox 99 02/18/25 11:33 Oxygen Delivery Method Room Air 02/18/25 11:33 BMI result Body Mass Index 28.6 Tobacco/Smoking Status: Tobacco use Status Tobacco use date assessed 10/06/23 02/18/25 11:29 Patient Tobacco Use Status Never used Tobacco 02/18/25 11:29 e-Cigarette/Vaping Use Never Used 02/18/25 11:29 Thrive Assessment: Date of Thrive Assessment Date Thrive assessed 05/24/24 02/18/25 11:29 Currently or been in a relationship where the following occur: I choose not to answer Const General: well developed; No acute distress Nutritional Appearance: well nourished Orientation/consciousness: patient oriented x3 HENMT Head: Yes normocephalic and Yes atraumatic Eyes General: appearance normal, both eyes and all related structures Pupils: Equal, round and reactive pupils present EOM: EOMs intact bilaterally Resp Effort & Inspection: normal respiratory effort Neuro General: patient oriented x3 and gait normal Cranial nerves: Yes Equal, round and reactive pupils present Psych Affect: normal affect Coding Level of Care Code Est Pt Level 4 (60210) Diagnoses Essential hypertension I10 Chest pain R07.9 Bradycardia R00.1 Elevated liver enzymes R74.8 Assessment & Plan Assessment & Plan (1) Essential hypertension: Code(s): I10 - Essential (primary) hypertension Category: Medical Plan: Blood pressure often metoprolol remains well controlled. Goal is less than 140/90 Continue current medications, amlodipine lisinopril. He can remain off metoprolol. (2) Chest pain: Code(s): R07.9 - Chest pain, unspecified Category: Medical Plan: Cardiology feels this is most likely secondary to musculoskeletal strain from heavy weight lifting. Has follow-up imaging/cardiac studies off of metoprolol (3) Bradycardia: Code(s): R00.1 - Bradycardia, unspecified Category: Medical Plan: Now off of metoprolol Heart rate 60 beats per minute is at low end of normal and patient is rather athletic. (4) Elevated liver enzymes: Code(s): R74.8 - Abnormal levels of other serum enzymes Category: Medical Plan: Mildly elevated liver enzymes Hydrate well Will continue to monitor Orders: Orders Lipid Panel Today Z00.00 - Encounter for general adult medical examination without abnormal findings Hemoglobin A1c Today R73.01 - Impaired fasting glucose Comprehensive Dennis. Panel Fast Today Z00.00 - Encounter for general adult medical examination without abnormal findings Complete Blood Count Auto Diff Today Z00.00 - Encounter for general adult medical examination without abnormal findings Microalbumin, Random (w Creat) Today I10 - Essential (primary) hypertension Prostate Specific Antigen Scr Today Z12.5 - Encounter for screening for malignant neoplasm of prostate TSH reflex Free T4 Today Z00.00 - Encounter for general adult medical examination without abnormal findings UA CC w/rflx Micro + Cult Today Z00.00 - Encounter for general adult medical examination without abnormal findings
[2025-02-18 11:33] VITALS: BP 120/66; PULSE 60; RESP 16; TEMP 36.4; O2SAT 99; BMI 28.6
--- OUTSIDE RECORDS SUMMARY | 2025-02-18 13:47 | XMS_ITS | Clinical Summary ---
Author Organization [facility] Address [address] [place] [address] Phone Care Team Providers Care Painter Ski Edge Name Role Phone Parviz Aguero MD Primary Care Provider [phone] Allergies No known active allergies Medications allopurinol [...] Vaccine (#1) 2024 Insurance ([id number]) PATRICIA SALCIDO [id number] ([id number]) PATRICIA SALCIDO [id number] Care Teams Painter Ski Edge Relationship Specialty Start Date End Date Parviz Aguero MD [address] [address] PCP - General Family Medicine 12/24/20
== END 2025-02-18 11:51 | disposition home or self-care (01) ==
LOC: HO.HMCFM 11:25
PROVIDERS: PCP Family Medicine; Visit Provider Family Medicine
DX: I10 Essential (primary) hypertension (principal); R07.9 Chest pain, unspecified; R00.1 Bradycardia, unspecified; R74.8 Abnormal levels of other serum enzymes

== ENCOUNTER → 2025-02-18 11:24 | Outpatient (BNVA) | payer OTHER, SELFPAY | PROVIDERS: PCP Family Medicine; Visit Provider Family Medicine | DX: I10 Essential (primary) hypertension (principal); R07.9 Chest pain, unspecified; R00.1 Bradycardia, unspecified; R74.8 Abnormal levels of other serum enzymes; R73.01 Impaired fasting glucose | CPT/HCPCS: 99212 ==

== ENCOUNTER → 2025-02-27 08:19 | Outpatient (REF) | payer OTHER, SELFPAY ==
--- NOTE | 2025-02-27 08:21 | CA_ITS ---
Acquisition Time: 2025-02-27 08:27:32 Total Exercise Time: 00:07:35 Test Indications: CP,Abnormal ECG,Fatigue Medications: SEE H&P Protocol: PETR Max HR: 166 BPM 102% of Pred: 162 BPM Max BP: 154/64 mmHG Max Work Load: 9.4 METS Exercise stress test with exercise 7 mins 35 secs of Petr Protocol, achieving 93% MPHR, with reports of SOB, no chest pain, with isolated PVCs, with normotensive response to exercise. Without any EKG changes meeting criteria for ischemia. In recovery, breathing improved and pt feeling back to baseline. Echo images obtained by tech at rest and post peak exercise. Definity contrast utilized. Test reviewed with Dr. Latif. Referred By: Denilson Latif Electronically Signed By: Bj Jeffries
--- OUTSIDE RECORDS SUMMARY | 2025-02-27 15:55 | XMS_ITS | Clinical Summary ---
Author Organization [facility] Address [address] [place] [address] Phone Care Team Providers Care Supply Aide Name Role Phone Parviz Aguero MD Primary [...] Vaccine (#1) 2024 Insurance ([id number]) PATRICIA SALCIDO [id number] ([id number]) PATRICIA SALCIDO [id number] Care Teams Supply Aide Relationship Specialty Start Date End Date Parviz Aguero MD [address] [address] PCP - General Family Medicine 12/24/20
== END ==
LOC: HO.CARD 08:19
PROVIDERS: PCP Family Medicine; Visit Provider Internal Medicine
DX: R07.2 Precordial pain (principal); R94.31 Abnormal electrocardiogram [ECG] [EKG]; R53.83 Other fatigue
CPT/HCPCS: 93350; Q9957

== ENCOUNTER → 2025-02-27 08:21 | Outpatient (BNV) | payer OTHER, SELFPAY | PROVIDERS: PCP Family Medicine | DX: R94.31 Abnormal electrocardiogram [ECG] [EKG] (principal); I49.3 Ventricular premature depolarization; R06.02 Shortness of breath | CPT/HCPCS: 93016; 93018; 93350; 93352 ==